=== PATIENT | female | born 2000 | race Caucasian/White ===

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

== ENCOUNTER 2020-07-22 19:44 | Emergency (ER) | payer OTHER, SELFPAY ==
[2020-07-22 20:05] VITALS: BP 130/73; PULSE 76; RESP 18; TEMP 36.6; O2SAT 99; BMI 41.3
--- NOTE | 2020-07-22 20:21 | HMH.EDUTC ---
[facility] [place] Clinical Impression: Exposure to COVID-19 virus Disposition: Home, Self-Care Condition on Discharge: Good Instructions: DI for COVID-19 (Suspected or Confirmed ), COVID-19 Viral Test, COVID-19: Testing and Tracing, Preventing the Spread of Coronavirus Discharge Instructions Additional Instructions: *Monitor Temp, Over the counter Motrin or Tylenol as directed/as needed Tylenol every 4 hours and Motrin every 6 hours (as long as your family doctor has told you that you can take it) for fever or pain. and straight to ER if unable to lower temp less than 101.0 after medication given *Warm salt water gargles may help to soothe the throat *Throat Lozenges *Warm fluids like tea with honey may help to soothe the throat *Sleep elevated *Humidifier/Vaporizer Follow up IMMEDIATELY for new or worsening symptoms or no Noticeable improvement over the next 48-72 hours. 911 for difficulty breathing or swallowing You were tested for today for COVID19 your test result should be back in the next 24-48 hours, you may call to the [facility] to see if your test results are back in the next 48 hours [phone] [facility] hours are 9am-9pm You was given a handout with instructions for Self Quarantine and Self isolation for while you wait on test results and what to do if they are positive If you are positive the Health Dept will be contacting you also Referrals: Lamar Saldaña APRN [Primary Care Provider] - As needed Forms: Work/School Release Time of Disposition: 20:23 Medical Decision Making - Tian Inquiry Pt receiving controlled substance: No Tian was queried for this patient: No Vital Signs: 07/22/20 20:05 Temperature 97.8 F Temperature Source Oral Pulse Rate [Right Brachial] 76 Respiratory Rate 18 Blood Pressure [Right Arm] 130/73 Blood Pressure Mean [Right Arm] 92 Blood Pressure Source [Right Arm] Automatic Cuff Blood Pressure Position [Right Arm] Sitting 02 Sat by Pulse Oximetry 99 Oxygen Delivery Method Room Air Orders (Tests/Meds): ORDERS Category Date Time Status Covid-19 Nasal PCR ([facility]) Routine Lab 07/22/20 20:00 Received [facility] [place] HPI - General Stated complaint: covid exposures Time Seen by Provider: 07/22/20 20:21 Mode of Arrival: Ambulatory Source of Information: Patient Limitations: No Limitations Description of Symptoms (Recalled from Triage Doc. 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 - Related Data Previous Rx's Medication Instructions Recorded metronidazole 500 mg tablet 500 mg PO TID 7 Days #21 tab 05/25/20 Allergies Allergy/AdvReac Type Severity Reaction Status Date / Time human papillomavirus Allergy Mild Verified 05/25/20 14:34 vaccine, quadr [From Gardasil (PF)] Penicillins [PENICILLINS] Allergy Unknown I-HIVES Verified 05/25/20 14:34 - Worker's Comp Is this a Worker's Comp case?: No [facility] History - Hepatitis A Screen Drug use history?: No High risk sexual behaviors?: No History of sexually transmitted infection?: No Currently employed?: No Childcare worker?: No Do you have indoor plumbing?: Yes Do you have electricity?: Yes Attestation statement:: This patient has been screened for Hepatitis A risk factors. I have reviewed the patient's past medical history: Yes 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: Denies:: Cancer, Diabetes Mellitus Type 1, Diabetes Mellitus Type 2, MRSA Other 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: Reports: Hypothyroidism, Thyroid Disease Other Surgeries: Yes: No Previous Surgery, Othe
[2020-07-22 20:29] VITALS: BP 130/73; PULSE 76; RESP 18; TEMP 36.6; O2SAT 99
== END 2020-07-22 20:30 | disposition home or self-care (01) ==
PROVIDERS: Emergency Provider Nurse Practitioner; PCP Nurse Practitioner Family
DX: Z20.828 Contact with and (suspected) exposure to other viral communicable diseases (principal); Z88.0 Allergy status to penicillin
CPT/HCPCS: 99201; U0003

== ENCOUNTER → 2020-09-07 14:27 | Outpatient (CLI) | payer OTHER, SELFPAY ==
--- NOTE | 2020-09-07 14:30 | XR_ITS ---
PROCEDURE: XR FOOT WT BEARING RT 3V CLINICAL INDICATION: R Foot pain COMPARISON: No exams were available for comparison FINDINGS: No fracture or dislocation. No lytic or blastic change. There is normal mineralization. The joint spaces are well-preserved. No significant degenerative/arthritic changes. No erosive changes evident. Other findings:None. IMPRESSION: No acute findings. Dictated by: Omer Velez MD 09/07/2020 14:39 Omer Velez MD in [place] 09/07/2020 14:39
== END ==
PROVIDERS: PCP Nurse Practitioner Family; Visit Provider Nurse Practitioner Family
DX: M79.671 Pain in right foot (principal)
CPT/HCPCS: 73630

== ENCOUNTER 2020-12-05 15:03 | Emergency (ER) | payer SELFPAY ==
[2020-12-05 15:35] VITALS: BP 154/83; PULSE 98; RESP 20; TEMP 37.1; O2SAT 99; BMI 41.2
--- NOTE | 2020-12-05 15:37 | XR_ITS ---
PROCEDURE INFORMATION: Exam: XR Abdomen Exam date and time: 12/05/2020 3:37 PM Age: 19 years old Clinical indication: Patient HX: Constipation since Monday TECHNIQUE: Imaging protocol: XR of the abdomen. Views: Frontal supine view of the abdomen. 1 View. COMPARISON: No relevant prior studies available. FINDINGS: Gastrointestinal tract: The bowel gas pattern is nonobstructive and nonspecific. A large amount of stool is noted throughout the colon. Bones/joints: Unremarkable. IMPRESSION: 1. The bowel gas pattern is nonobstructive and nonspecific. 2. A large amount of stool is noted throughout the colon.
--- NOTE | 2020-12-05 15:56 | HMH.EDUTC ---
[facility] [place] Clinical Impression: Constipation Qualifiers: Constipation type: unspecified constipation type Qualified Code(s): K59.00 - Constipation, unspecified Disposition: Home, Self-Care Condition on Discharge: Good Instructions: Constipation, DI for Constipation, Polyethylene Glycol 3350 Additional Instructions: Over the counter Magnesium Citrate may help to erradicate remaining stool Take mirlax daily as needed for constipation Make sure to be drinking plenty of water Make sure that you are getting enough fiber in your diet Return if needed Straight to ER if any life threatening symptoms Follow up with Family Doctor if symptoms return or no improvement Prescriptions: polyethylene glycoL 3350 [Miralax 17gm Packet] 17 gm PO DAILY #30 packet Transmission Status: Received by [facility] Referrals: Nikolas Nguyễn MD [Primary Care Provider] - As needed Time of Disposition: 17:00 Medical Decision Making - Tian Inquiry Pt receiving controlled substance: No Tian was queried for this patient: No Vital Signs: 12/05/20 15:35 Temperature 98.8 F Temperature Source Oral Pulse Rate [Right Brachial] 98 H Respiratory Rate 20 Blood Pressure [Right Arm] 154/83 H Blood Pressure Mean [Right Arm] 106 Blood Pressure Source [Right Arm] Automatic Cuff Blood Pressure Position [Right Arm] Sitting 02 Sat by Pulse Oximetry 99 Oxygen Delivery Method Room Air - Radiology Data #1 Image(s): KUB Image Reviewed: Yes I have reviewed radiologist's interpretation IMPRESSION: 1. The bowel gas pattern is nonobstructive and nonspecific. 2. A large amount of stool is noted throughout the colon. Medical Decision Narrative: Checked rectal area and large amount of hard stool palpated Stool removed with manual disimpaction and patient immediately states that she felt like she had to go to the bathroom Patient to the bathroom and had large bowel movement Patient states that she feels much better and no longer having pain or pressure like feeling in her rectal area After large BM patient states that she feels much better patient prescribed Mirlax and discussed Mag Citrate mother states that she would purchase over the counter [facility] [place] HPI - General Stated complaint: constipation Time Seen by Provider: 12/05/20 15:56 Mode of Arrival: Ambulatory Source of Information: Patient Limitations: No Limitations Description of Symptoms (Recalled from Triage Doc. by RN): PATIENT C/O SEVERE CONSTIPATION. SHE STATES HER LAST BOWEL MOVEMENT WAS ON MONDAY. SHE HAS USED LAXATIVES, STOOL SOFTENERS AND ENEMAS WITH NO RESULTS. PATIENT IS TEARFUL AT THIS TIME D/T ABDOMINAL DISCOMFORT HEENT Symptoms (Recalled from RN notes): No Resp Symptoms (Recalled from RN notes): No Skin Symptoms (Recalled from RN notes): No MS Symptoms (Recalled from RN notes): No Functional Status (Recalled from RN notes): WNL - History of Present Illness Provider Complaint: Patient states that she hasnt had a bowel movement since Monday and feels like she is constipated States that she has taken oral laxatives and stool softners and feels like it is at her anus ready to come out but she stuck her fingers up there and feels like it is sideways and she made her butt bleed States that she has a pressure like feeling like it is right there and she needs to go States that she has been passing gas just pressure in her rectal area like she has stool that is stuck there - Related Data Previous Rx's Medication Instructions Recorded meloxicam 7.5 mg tablet 7.5 mg PO DAILY 30 Days #30 tab 09/28/20 polyethylene glycoL 3350 [Miralax 17 gm PO DAILY #30 packet 12/05/20 17gm Packet] Allergies Allergy/AdvReac Type Severity Reaction Status Date / Time human papillomavirus Allergy Mild Verified 09/28/20 09:16 vaccine, quadr [From Gardasil (PF)] Penicillins [PENICILLINS] Allergy Unknown I-HIVES Verified 09/28/20 09:16 - Worker's Comp Is t
[2020-12-05 16:55] VITALS: BP 154/83; PULSE 98; RESP 20; TEMP 37.1; O2SAT 99
--- NOTE | 2020-12-05 17:30 | PC.NURSE ---
PATIENT REPORTED XL BOWEL MOVEMENT PRIOR TO DISCHARGE
== END 2020-12-05 17:00 | disposition home or self-care (01) ==
PROVIDERS: Emergency Provider Nurse Practitioner; PCP Emergency Medicine
DX: K59.00 Constipation, unspecified (principal); E03.9 Hypothyroidism, unspecified
CPT/HCPCS: 74018; 99202; G0463

== ENCOUNTER 2021-04-22 14:52 | Emergency (ER) | payer OTHER, SELFPAY ==
[2021-04-22 14:53] VITALS: BP 121/70; PULSE 98; RESP 18; TEMP 36.7; O2SAT 98; BMI 35.4
[2021-04-22 15:00] VITALS: BP 134/73; PULSE 77; O2SAT 98
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
--- NOTE | 2021-04-22 15:19 | PC.NURSE ---
pt to CT
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
[2021-04-22 17:23] VITALS: BP 123/68; PULSE 78; RESP 18; TEMP 36.6; O2SAT 96
== END 2021-04-22 17:25 | disposition home or self-care (01) ==
PROVIDERS: Emergency Provider Emergency Medicine; PCP Emergency Medicine
DX: M54.2 Cervicalgia (principal); M62.838 Other muscle spasm; V49.9XXA Car occupant (driver) (passenger) injured in unspecified traffic accident, initial encounter; Y92.488 Other paved roadways as the place of occurrence of the external cause
CPT/HCPCS: 72125; 99282

== ENCOUNTER 2021-05-08 07:45 | Emergency (ER) | payer SELFPAY ==
[2021-05-08 07:46] VITALS: BP 150/79; PULSE 100; RESP 18; TEMP 36.7; O2SAT 96; BMI 35.9
--- NOTE | 2021-05-08 08:06 | HMH.EDGENADL ---
ED Disposition Clinical Impression: Fecal impaction Disposition: Home, Self-Care Condition on Discharge: Good Instructions: DI for Fecal Impaction Additional Instructions: Continue stool softeners and high-fiber diet. Drink plenty of fluids. MiraLAX as prescribed. Prescriptions: polyethylene glycoL 3350 [Miralax 17gm Packet] 17 gm PO DAILY #5 packet Transmission Status: Pending to [facility] Referrals: Lamar Saldaña APRN [Primary Care Provider] - 3 days Forms: Work/School Release - Critical Care Critical Care Time: No Attestation: On 05/08/21, the high probability of a clinically significant, sudden or life threatening deterioration of the following system(s) required my full and direct attention, intervention and personal management. The time I documented below is in addition to time spent performing reported procedures but includes the following listed in this critical care notation. Medical Decision Making - Medical Records Medical records reviewed: Yes: I reviewed the patient's medical records. MR Comment: Has a listed history of hypothyroidism, currently not on thyroid replacement. I discussed this with the patient. She says that she was taken off of thyroid replacement years ago, told that she did not need it. Has not had her thyroid function checked since then. I advised her that hypothyroidism is a potential cause of constipation and recommended checking a thyroid profile. She is agreeable. - Tian Inquiry Pt receiving controlled substance: No Vital Signs: 05/08/21 07:46 Temperature 98.0 F Temperature Source Oral Pulse Rate [Left Radial] 100 H Respiratory Rate 18 Blood Pressure [Right Arm] 150/79 H Blood Pressure Mean [Right Arm] 102 Blood Pressure Source [Right Arm] Automatic Cuff Blood Pressure Position [Right Arm] Sitting 02 Sat by Pulse Oximetry 96 Oxygen Delivery Method Room Air - Lab Data Lab Results 05/08/21 08:36: WBC 5.3, RBC 4.26, Hgb 14.0, Hct 43.2, MCV 101.5 H, MCH 32.8 H, MCHC 32.3, RDW 14.2, Plt Count 262, MPV 7.8, Neut % (Auto) 63.8, Lymph % (Auto) 27.8, [place] % (Auto) 5.4, Eos % (Auto) 2.2, Baso % (Auto) 0.8, Neut # (Auto) 3.4, Lymph # (Auto) 1.5, [place] # (Auto) 0.3, Eos # (Auto) 0.1, Baso # (Auto) 0.0 05/08/21 08:36: Sodium 142, Potassium 4.4, Chloride 107, Carbon Dioxide 26, Anion Gap 13.4, BUN 8, Creatinine 0.50 L, Estimated Creat Clear 312 H, Estimated GFR 157, Est GFR ( Amer) 190, Glucose 85, Calcium 9.4, Total Bilirubin 0.5, AST 23, ALT 15, Alkaline Phosphatase 58, Total Protein 8.0, Albumin 4.7, Globulin 3.3 H, Albumin/Globulin Ratio 1.4 05/08/21 08:36: TSH 3.93, Free T4 Index 2.5 L, Thyroxine (T4) 9.5, T3 Uptake 26 Result diagrams: 05/08/21 08:36 05/08/21 08:36 Orders (Tests/Meds): ED MEDICATIONS Discontinued Medications Generic Name Dose Route Start Last Admin Trade Name Freq PRN Reason Stop Dose Admin Magnesium Citrate 1 bot 05/08/21 08:20 05/08/21 08:43 Magnesium Citrate 10oz Bottle PO 05/08/21 08:21 1 bot ONCE ONE Administration - Reevaluation(s) Time: 09:42 Reevaluation #1: Feels much better, good BM results from enema General Adult HPI - General Stated complaint: Abd pain no BM for 2 days Time Seen by Provider: 05/08/21 08:06 - History of Present Illness HPI narrative: Complains of a fecal impaction. Complains of pressure in her rectum. Denies abdominal pain. States that she has lots of problems with her bowels with constipation chronically. For the past few weeks she has been having some increased difficulty. No bowel movement now for 2 days, feels like she has an impaction. She has tried glycerin liquid and she tried to do get out . She takes stool softeners at home as well. She has never seen a environmental aid about constipation. States she does not currently have health insurance and is unable to do so. Denies vomiting or fever. She was seen in the urgent treatment center here in
--- NOTE | 2021-05-08 08:43 | PC.NURSE ---
enema complete, pt tolerated well.
[2021-05-08 08:47] LABS: Basophils % 0.8 % (0.1-2.0); Eosinophils # 0.1 K/mm3 (0.0-0.4); Eosinophils % 2.2 % (0.1-12.0); Hematocrit 43.2 % (37.0-47.0); Lymphocytes # 1.5 K/mm3 (0.7-4.5); Lymphocytes % 27.8 % (10-50); Mean Corpuscular HGB Conc 32.3 g/dL (31.8-35.4); Mean Corpuscular Hemoglobin 32.8 pg (27.0-31.2); Mean Corpuscular Volume 101.5 fl (81-99); Mean Platelet Volume 7.8 fl (7.4-10.4); Monocytes # 0.3 K/mm3 (0.1-1.0); Monocytes % 5.4 % (1.7-9.3); Neutrophils # 3.4 K/mm3 (1.8-7.8); Neutrophils % 63.8 % (37.0-80.0); Platelet Count 262 K/mm3 (142-424); Red Blood Count 4.26 M/mm3 (4.20-5.40); Red Cell Distribution Width 14.2 % (11.5-17.5); White Blood Count 5.3 K/mm3 (4.5-13.0)
[2021-05-08 09:00] LABS: Chloride 107 mmol/L (98-107); Potassium 4.4 mmoL/L (3.5-5.1); Sodium 142 mmol/L (136-145)
--- NOTE | 2021-05-08 09:00 | PC.NURSE ---
pt in bathroom at this time
[2021-05-08 09:03] LABS: Alanine Aminotransferase 15 U/L (12-78); Albumin Level 4.7 g/dl (3.5-5.0); Albumin/Globulin Ratio 1.4 (1.1-1.8); Alkaline Phosphatase 58 U/L (38-126); Anion Gap 13.4 mEq/L (5-15); Aspartate Amino Transferase 23 U/L (14-36); Bilirubin,Total 0.5 mg/dl (0.2-1.3); Blood Urea Nitrogen 8 mg/dl (7-17); Carbon Dioxide 26 mmol/L (22.0-30.0); Creatinine Clearance Estimated 312 mL/min (50-200); Estimated Glomerular Filt Rate 157 ml/min (>60); GFR (African American) 190 ML/MIN (>60); Globulin 3.3 g/dL (1.3-3.2)
[2021-05-08 09:04] LABS: Calcium 9.4 mg/dl (8.4-10.2); Glucose 85 mg/dl (74-100)
--- NOTE | 2021-05-08 09:10 | PC.NURSE ---
Pt states she feels better, no more pressure in rectal area, she was successful with multi stool bad with defecation.
[2021-05-08 09:20] LABS: Triiodothryronine (T3) Uptake 26 % (23.5-40.5)
[2021-05-08 09:21] LABS: Free Thyroxine Index 2.5 ug/dL (5.93-13.13); T4 (Thyroxine) 9.5 ug/dl (5.53-11.0)
[2021-05-08 09:35] LABS: Thyroid Stimulating Hormone 3.93 uIU/mL (0.465-4.68)
[2021-05-08 09:51] VITALS: BP 132/86; PULSE 64; RESP 19; O2SAT 100
[2021-05-08 09:52] VITALS: BP 132/86; PULSE 65; RESP 18; TEMP 36.7; O2SAT 100
== END 2021-05-08 09:53 | disposition home or self-care (01) ==
PROVIDERS: Emergency Provider Emergency Medicine; PCP Nurse Practitioner Family
DX: K56.41 Fecal impaction (principal)
CPT/HCPCS: 80053; 84436; 84443; 84479; 85025; 99282

== ENCOUNTER → 2021-08-25 11:44 | Outpatient (CLI) | payer OTHER, SELFPAY | PROVIDERS: Visit Provider Nurse Practitioner | DX: U07.1 COVID-19 (principal) | CPT/HCPCS: C9803; U0003; U0005 ==

== ENCOUNTER 2022-03-05 14:23 | Emergency (ER) | payer SELFPAY ==
[2022-03-05 14:45] VITALS: BP 126/70; PULSE 86; RESP 18; TEMP 36.7; O2SAT 97; BMI 30.2
--- NOTE | 2022-03-05 14:48 | HMH.EDUTC ---
[facility] [place] Clinical Impression: Viral syndrome Disposition: Home, Self-Care Condition on Discharge: Good Instructions: DI for COVID-19 (Suspected or Confirmed ), Preventing the Spread of Coronavirus Discharge Instructions Additional Instructions: Drink plenty of fluids. Take tylenol or ibuprofen for pain or fever. Take the medications as directed. Follow up with your regular doctor. GO TO THE ER FOR ANY WORSENING SYMPTOMS Quarantine until you know the results of your covid-19 test. Notify your school or workplace of your results and follow their instructions regarding return to work/school. Prescriptions: Brompheniramine/Pseudoephed/Dm [Bromfed Dm Cough Syrup] 5 ml PO Q6HP PRN #240 ml PRN Reason: Cough Transmission Status: Received by [facility] Ondansetron [Zofran 4mg ODT] 4 mg PO Q8HP PRN #12 tab PRN Reason: Nausea Transmission Status: Received by [facility] Referrals: Nikolas Nguyễn MD [Primary Care Provider] - Forms: Work/School Release Time of Disposition: 15:04 Medical Decision Making - Medical Records Medical records reviewed: No: I reviewed the patient's medical records. - Tian Inquiry Pt receiving controlled substance: No Vital Signs: 03/05/22 14:45 03/05/22 15:07 Temperature 98.1 F 98.1 F Temperature Source Oral Pulse Rate 86 Pulse Rate [Left] 86 Respiratory Rate 18 18 Blood Pressure 126/70 Blood Pressure [Right Arm] 126/70 Blood Pressure Mean [Right Arm] 88 02 Sat by Pulse Oximetry 97 [facility] [place] - General Stated complaint: covid exposure, body aches, chills Time Seen by Provider: 03/05/22 14:48 Mode of Arrival: Ambulatory Source of Information: Patient Limitations: No Limitations Description of Symptoms (Recalled from Triage Doc. by RN): patient comes in for covid test. patient was exposed by a room mate. at home test was negative. symptoms include body aches, headaches, runny nose. HEENT Symptoms (Recalled from RN notes): Yes Resp Symptoms (Recalled from RN notes): No Skin Symptoms (Recalled from RN notes): No MS Symptoms (Recalled from RN notes): No Functional Status (Recalled from RN notes): n/a - History of Present Illness Provider Complaint: She was exposed to covid-19 3 days ago. she started to feel bad last night. she has a scratchy throat and body aches. - Related Data Previous Rx's Medication Instructions Recorded meloxicam 7.5 mg tablet 7.5 mg PO DAILY 30 Days #30 tab 09/28/20 polyethylene glycoL 3350 [Miralax 17 gm PO DAILY #30 packet 12/05/20 17gm Packet] Ibuprofen [Ibuprofen 800mg 800 mg PO TIDP PRN #20 tab 04/22/21 Tablet] methocarbamoL [Methocarbamol] 750 mg PO QID 7 Days #28 tab 04/22/21 polyethylene glycoL 3350 [Miralax 17 gm PO DAILY #5 packet 05/08/21 17gm Packet] Brompheniramine/Pseudoephed/Dm 5 ml PO Q6HP PRN #240 ml 03/05/22 [Bromfed Dm Cough Syrup] Ondansetron [Zofran 4mg ODT] 4 mg PO Q8HP PRN #12 tab 03/05/22 Allergies Allergy/AdvReac Type Severity Reaction Status Date / Time human papillomavirus Allergy Mild Verified 03/05/22 14:48 vaccine, quadr [From Gardasil (PF)] Penicillins [PENICILLINS] Allergy Unknown I-HIVES Verified 03/05/22 14:48 - Worker's Comp Is this a Worker's Comp case?: No [facility] History - Hepatitis A Screen Attestation statement:: This patient has been screened for Hepatitis A risk factors. I have reviewed the patient's past medical history: Yes 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: Denies:: Cancer, Diabetes Mellitus Type 1, Diabetes Mellitus Type 2, MRSA Other 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: Reports: Hypothyroidism, Thyroid Disease Other Surgeries: Yes: No Previous Surgery, Other Amputation: No Fractures: No Comment: WISDOM TEETH REMOVED - Social History Smoking Status: Never smoker Tobacco Type: smokeless tobacco # Packs/Day (cigarettes): 0 #Yrs smoked (if former smoker): 0 Alcohol Intake: never Substance Use Type: denies use Occupational Status: ot
[2022-03-05 15:07] VITALS: BP 126/70; PULSE 86; RESP 18; TEMP 36.7
== END 2022-03-05 15:09 | disposition home or self-care (01) ==
PROVIDERS: Emergency Provider Nurse Practitioner Family; PCP Emergency Medicine
DX: B34.9 Viral infection, unspecified (principal)
CPT/HCPCS: 99212; C9803; G0463; U0003; U0005

== ENCOUNTER → 2022-06-17 11:37 | Outpatient (CLI) | payer OTHER, SELFPAY | PROVIDERS: PCP Student in an Organized Health Care Education/Training Program; Visit Provider Student in an Organized Health Care Education/Training Program | DX: N39.0 Urinary tract infection, site not specified (principal) | CPT/HCPCS: 87086 ==

== ENCOUNTER → 2022-07-26 14:21 | Outpatient (CLI) | payer OTHER, SELFPAY ==
[2022-07-26 16:28] LABS: HCG,Quantitative 376 mIU/ml (0-5.42)
== END ==
PROVIDERS: PCP Emergency Medicine; Visit Provider Obstetrics & Gynecology
DX: N92.6 Irregular menstruation, unspecified (principal); Z32.00 Encounter for pregnancy test, result unknown
CPT/HCPCS: 36415; 84702

== ENCOUNTER 2022-11-03 17:44 | Emergency (ER) | payer MEDICAID, SELFPAY ==
[2022-11-03 17:47] VITALS: BP 114/73; PULSE 90; RESP 17; TEMP 36.7; O2SAT 100; BMI 31.8
--- NOTE | 2022-11-03 17:55 | HMH.EDGENADL ---
Discharge Plan Disposition Patient Disposition: Home, Self-Care Prescriptions Prescriptions: No Action nitrofurantoin macrocrystal 100 mg capsule 100 mg PO BID 7 Days Qty: 14 0RF Rx Instructions: must administer with a meal/food Referrals Follow up/Referrals: Nikolas Nguyễn MD [Primary Care Provider] - See instructions Activity Restrictions/Add. Instructions Additional Instructions/Restrictions: Please follow-up with your [employer] doctors if you have any worsening abdominal pain loss of fluid vaginal bleeding or contractions. You may take Tylenol with or without Benadryl as discussed for as needed for discomfort. Clinical Impressions Clinical Impression: Second trimester , Sciatica Discharge ED Provider: David Dickerson General Adult HPI General Stated complaint: 19 WK PREG, Back and Abd pain. Time Seen by Provider: 11/03/22 17:56 History of Present Illness HPI narrative: Patient is a G1, P0 female who is here with primarily back pain. She states she has a history of sciatica and her symptoms have been worsening recently pain rating down the left lateral aspect of her leg with occasional numbness in her foot. This is not associate with any weakness and is intermittent at best. Every once in a while she has bilateral adnexal pain that is sharp in nature that radiates up but she is currently not having any abdominal pain. There is been no decrease in movements she says not yet felt the baby move, no loss of fluid no bleeding no contractions. She had some Tylenol at home with some mild improvement. Of note her sister recently had strep throat they are concerned about that because she felt systemic malaise however she does not have any throat pain and no fever. No urinary symptoms including burning frequency urgency. No vaginal bleeding or vaginal discharge. No changes in bowel movements. Related Data Previous Rx's Medication Instructions Recorded nitrofurantoin macrocrystal 100 mg 100 mg PO BID 7 days #14 caps 06/17/22 capsule Allergies Allergy/AdvReac Type Severity Reaction Status Date / Time human papillomavirus Allergy Mild Verified 06/17/22 11:36 vaccine, quadr [From Gardasil (PF)] Penicillins [PENICILLINS] Allergy Unknown I-HIVES Verified 06/17/22 11:36 [facility] Disclaimer: The information contained in this section may have been updated after the patient was seen, as this information can be updated by other users. 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 Bilateral otitis media Hypothyroidism (~04/16/18) Mononucleosis (~04/16/18) Vitamin D deficiency (~04/16/18) Social History Smoking Status: Never smoker alcohol intake: never substance use type: denies use current occupational status: other Travel in the last 8 weeks: None household members: family housing: house ROS Obtained: Yes All systems reviewed & no additional complaints except as documented Physical Exam General General appearance: alert and in no apparent distress Respiratory Respiratory exam: Absent respiratory distress Cardiovascular Cardiovascular exam: Present regular rate and normal rhythm; Absent tachycardia Abdominal Exam Abdominal exam: Present soft; Absent distention, tenderness, guarding, rebound, rigidity or normal bowel sounds Neurological Exam Neurological exam: Present alert and oriented X3 Medical Decision Making Tian Inquiry Pt receiving controlled substance: No Medical Decision Narrative: Patient very well-appearing 21-year-old female with multiple complaints associate with second trimester . She states that she has had intermittent abdominal pain but her abdominal exam is completely benign right now and she has no abdominal pain. This is not consistent with a surgical emergency. She also is having lower back pain that is consistent with sciatica without any symptoms c
[2022-11-03 18:29] VITALS: BP 114/73; PULSE 90; RESP 17; TEMP 36.7; O2SAT 100
== END 2022-11-03 18:29 | disposition home or self-care (01) ==
PROVIDERS: Emergency Provider Student in an Organized Health Care Education/Training Program; PCP Emergency Medicine
DX: O99.352 Diseases of the nervous system complicating pregnancy, second trimester (principal); M54.42 Lumbago with sciatica, left side; Z3A.19 19 weeks gestation of pregnancy
CPT/HCPCS: 99283; 99284

== ENCOUNTER 2023-01-20 14:58 | Outpatient (CLI) | payer MEDICAID, SELFPAY ==
[2023-01-20 15:43] VITALS: BMI 38.9
[2023-01-20 15:44] VITALS: BMI 38.9
[2023-01-20 15:59] LABS: Microscopic, Urine URINE MICROSCOPIC (MICROSCOPIC)
[2023-01-20 16:02] LABS: Appearance,Urine CLEAR (Clear); Bilirubin,Urine Negative (Negative); Blood, Urine Negative (Negative); Color,Urine YELLOW (Yellow); Glucose,Urine (UA) Negative (Negative); Ketones,Urine 1+ (Negative); Leukocyte Esterase,Urine TRACE (Negative); Nitrate,Urine Negative (Negative); PH,Urine 6.5 (5.0-8.5); Protein,Urine Negative (Negative); Urobilinogen,Urine 0.2 EU/dl (0.2)
[2023-01-20 16:13] LABS: Amphetamine/Metha Screen,Urine Negative ng/ml (<1000)
[2023-01-20 16:14] LABS: Barbiturates Screen,Urine Negative ng/ml (<200); Benzodiazepines Screen,Urine Negative ng/ml (<200)
[2023-01-20 16:15] LABS: Cannabinoid Screen,Urine Negative ng/ml (<50)
[2023-01-20 16:16] LABS: Cocaine Screen,Urine Negative ng/ml (<300); Methadone Screen,Urine Negative ng/ml (<300)
[2023-01-20 16:17] LABS: Opiate Screen,Urine Negative ng/ml (<300)
[2023-01-20 16:18] LABS: Phencyclidine Screen,Urine Negative ng/ml (<25)
[2023-01-20 16:22] LABS: WBC,Urine Occasional #/hpf (0-3)
[2023-01-20 16:23] LABS: Bacteria,Urine Trace /lpf
== END 2023-01-20 16:33 | disposition home or self-care (01) ==
LOC: OBOUT 14:59 → OB 15:01
PROVIDERS: PCP Emergency Medicine; Visit Provider Obstetrics & Gynecology
DX: O26.893 Other specified pregnancy related conditions, third trimester (principal); Z3A.30 30 weeks gestation of pregnancy; R60.0 Localized edema; R20.2 Paresthesia of skin; R20.0 Anesthesia of skin
CPT/HCPCS: 59025; 80305; 81001; G0463

== ENCOUNTER → 2023-07-27 09:00 | Outpatient (CLI) | payer MEDICAID, SELFPAY ==
[2023-07-27 18:10] LABS: Basophils % 0.4 % (0.1-2.0); Eosinophils # 0.1 K/mm3 (0.0-0.4); Eosinophils % 1.6 % (0.1-12.0); Hematocrit 40.6 % (37.0-47.0); Hemoglobin 13.3 g/dL (12.2-16.2); Lymphocytes # 1.7 K/mm3 (0.7-4.5); Lymphocytes % 29.4 % (10-50); Mean Corpuscular HGB Conc 32.8 g/dL (31.8-35.4); Mean Corpuscular Hemoglobin 29.5 pg (27.0-31.2); Mean Corpuscular Volume 89.9 fl (81-99); Mean Platelet Volume 8.8 fl (7.4-10.4); Monocytes # 0.3 K/mm3 (0.1-1.0); Monocytes % 5.8 % (1.7-9.3); Neutrophils # 3.6 K/mm3 (1.8-7.8); Neutrophils % 62.7 % (37.0-80.0); Platelet Count 248 K/mm3 (142-424); Red Blood Count 4.51 M/mm3 (4.20-5.40); Red Cell Distribution Width 14.8 % (11.5-17.5); White Blood Count 5.7 K/mm3 (4.8-10.8)
[2023-07-27 19:43] LABS: Hemoglobin A1C 5.2 % (4.0-6.0)
[2023-07-27 20:15] LABS: Alanine Aminotransferase 19 U/L (12-78); Albumin Level 4.7 g/dl (3.5-5.0); Albumin/Globulin Ratio 1.5 (1.1-1.8); Alkaline Phosphatase 86 U/L (38-126); Anion Gap 11.8 mEq/L (5-15); Aspartate Amino Transferase 27 U/L (14-36); Bilirubin,Total 0.5 mg/dl (0.2-1.3); Blood Urea Nitrogen 10 mg/dl (7-17); Calcium 8.9 mg/dl (8.4-10.2); Carbon Dioxide 25 mmol/L (22.0-30.0); Chloride 105 mmol/L (98-107); Estimated Glomerular Filt Rate 154 ml/min (>60); GFR (African American) 187 ML/MIN (>60); Globulin 3.2 g/dL (1.3-3.2); Glucose 87 mg/dl (74-100); Potassium 4.8 mmoL/L (3.5-5.1); Sodium 137 mmol/L (136-145); Total Protein,Serum 7.9 g/dl (6.3-8.2)
[2023-07-27 20:42] LABS: 25-OH Vitamin D, Total < 12.8 ng/mL (30-100)
[2023-07-27 21:03] LABS: Vitamin B12 337 pg/mL (239-931)
== END ==
LOC: LAB.DROPOF 07-28 09:01
PROVIDERS: PCP Family Medicine; Visit Provider Family Medicine
DX: E66.01 Morbid (severe) obesity due to excess calories (principal); R53.83 Other fatigue; E03.9 Hypothyroidism, unspecified; E55.9 Vitamin D deficiency, unspecified; Z68.42 Body mass index [BMI] 45.0-49.9, adult
CPT/HCPCS: 80053; 82306; 82607; 83036; 84443; 85025

== ENCOUNTER 2023-08-23 00:50 | Emergency (ER) | payer MEDICAID, SELFPAY ==
[2023-08-23 00:51] VITALS: BP 131/67; PULSE 85; RESP 18; TEMP 36.7; O2SAT 100; BMI 46.5
--- NOTE | 2023-08-23 01:01 | HMH.EDGENADL ---
Discharge Plan Disposition Patient Disposition: Home, Self-Care Prescriptions Prescriptions: New methocarbamol 500 mg tablet 750 mg PO Q6H PRN (Reason: pain) Qty: 30 0RF lidocaine 5 % adhesive patch,medicated 1 patch topical DAILY PRN (Reason: pain) Qty: 30 0RF Rx Instructions: leave on most painful area for up to 12 hrs No Action levothyroxine 50 mcg tablet 50 mcg PO DAILY Qty: 30 2RF cholecalciferol (vitamin D3) 1,250 mcg (50,000 unit) capsule 1,250 mcg PO WEEKLY 42 Days Qty: 6 0RF Referrals Follow up/Referrals: Provider,Referral, [Primary Care Provider] - See instructions Activity Restrictions/Add. Instructions Additional Instructions/Restrictions: Please take Tylenol and ibuprofen in combination with the Robaxin as needed for pain. Please use lidocaine patches as needed. Please follow-up with your primary care provider. Please return to the emergency department if you develop any new or worsening symptoms or become concerned for your health. Clinical Impressions Clinical Impression: Sciatica of left side Discharge ED Provider: Cornelio Paz General Adult HPI General Chief complaint: Extremity Injury, Lower Stated complaint: lower back pain, leg pain Time Seen by Provider: 08/23/23 00:55 History of Present Illness HPI narrative: 22-year-old female presents with worsening sciatica. She reports that she has had sciatica in the past, but it typically does not last very long. She reports for the last few days she has had worsening pain in the left low back/buttock, radiating down the posterior leg. She reports that her legs sometimes gives out when she bends over or stands up straight. She reports no recent trauma. Denies any fevers, history of malignancy, history of IV drug use. She reports no specific weakness, just that it gives out sometimes . She reports intermittent numbness when the pain shoots down. No current numbness. She has a follow-up appointment scheduled with her PCP tomorrow, but due to the pain he presents tonight. She denies any bowel or bladder incontinence, denies any urinary retention. Denies any perineal anesthesia. Related Data Previous Rx's Medication Instructions Recorded cholecalciferol (vitamin D3) 1,250 1,250 mcg PO WEEKLY vitamin d def. 07/28/23 mcg (50,000 unit) capsule 6 weeks #6 caps levothyroxine 50 mcg tablet 50 mcg PO DAILY hypothyroid #30 07/28/23 tabs lidocaine 5 % topical patch 1 patch topical DAILY PRN pain #30 08/23/23 ea methocarbamol 500 mg tablet 750 mg PO Q6H PRN pain #30 tabs 08/23/23 Allergies Allergy/AdvReac Type Severity Reaction Status Date / Time human papillomavirus Allergy Mild Verified 07/27/23 10:58 vaccine, quadr [From Gardasil (PF)] Penicillins [PENICILLINS] Allergy Unknown I-HIVES Verified 07/27/23 10:58 PFSH PFSH Disclaimer: The information contained in this section may have been updated after the patient was seen, as this information can be updated by other users. 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 (Updated 08/23/23 @ 01:34 by Cornelio Paz MD) Ankle sprain Bilateral otitis media Callus of foot Cervical paraspinal muscle spasm Constipation Degenerative disc disease, lumbar Exposure to COVID-19 virus Fall Fecal impaction Foot pain Hypothyroidism (~04/16/18) Local reaction to immunization Low back pain Low back strain Lumbar radiculopathy Mononucleosis (~04/16/18) Otitis media Plantar fasciitis, right Right hand pain Right wrist sprain Sciatica Sciatica Second trimester Sinusitis Strep throat URI (upper respiratory infection) Viral syndrome Vitamin D deficiency (~04/16/18) Weakness Social History Smoking Status: Current every day smoker tobacco type: smokeless tobacco alcohol intake: never substance use type: denies use current occupational status: employed Travel in the last 8 weeks: None household members: family housing: house ROS Obtained: Yes All systems reviewed & no additional complaints except as documented Physical Exam General General appearance: alert and anxious Head Head exam: atraumatic and normocephalic Eye Eye exam: Present normal appearance, PERRL and EOMI ENT ENT exam: Present normal oropharynx and normal external ear exam Neck Neck exam: Present normal inspection and full ROM Chest Chest inspection: Present normal inspection and symmetric chest wall rise; Absent tenderness Respiratory Respiratory exam: Present normal lung sounds bilaterally; Absent respiratory distress Cardiovascular Cardiovascular exam: Present regular rate and normal rhythm Abdominal Exam Abdominal exam: Present soft; Absent distention, tenderness or guarding Extremities Exam Extremities exam: Present normal inspection; Absent edema or joint swelling Back Exam Back exam: Present normal inspection; Absent tenderness, paraspinal tenderness or vertebral tenderness Neurological Exam Neurological exam: Present alert, oriented X3 and other (Equal strength and sensation in bilateral lower extremities); Absent motor sensory deficit Psychiatric Psychiatric exam: Present normal affect and normal mood Skin Skin exam: Present warm, dry and normal color Lymphatic Lymphatic Findings: no adenopathy Medical Decision Making Medical Records Medical records reviewed: Yes I reviewed the patient's medical records. Tian Inquiry Pt receiving controlled substance: No Tian was queried for this patient: No Vital Signs: 08/23/23 00:51 Temperature 98.0 F Temperature Source Oral Pulse Rate [Left Radial] 85 Respiratory Rate 18 Blood Pressure [Right Arm] 131/67 Blood Pressure Mean [Right Arm] 88 Blood Pressure Source [Right Arm] Automatic Cuff Blood Pressure Position [Right Arm] Sitting 02 Sat by Pulse Oximetry 100 Oxygen Delivery Method Room Air Lab Data Lab results reviewed: Yes I reviewed the patient's lab results. Orders (Tests/Meds): ED MEDICATIONS Discontinued Medications Generic Name Dose Route Start Last Admin Trade Name Jazmin PRN Reason Stop Dose Admin Acetaminophen 1,000 mg 08/23/23 01:00 08/23/23 01:10 Acetaminophen 500mg Tab PO 08/23/23 01:01 1,000 mg ONCE ONE Administration Ketorolac Tromethamine 30 mg 08/23/23 01:00 08/23/23 01:11 Ketorolac 30mg/Ml Vial IV 08/23/23 01:01 Not Given ONCE ONE Ketorolac Tromethamine 30 mg 08/23/23 01:05 08/23/23 01:11 Ketorolac 30mg/Ml Vial IM 08/23/23 01:06 30 mg ONCE ONE Administration Lidocaine 1 each 08/23/23 01:00 08/23/23 01:11 Lidocaine 5% Transdermal Patch TP 08/23/23 01:01 1 each ONCE ONE Administration Methocarbamol 750 mg 08/23/23 01:00 08/23/23 01:11 Methocarbamol 500mg Tablet PO 08/23/23 01:01 750 mg ONCE ONE Administration Medical Decision Narrative: 22-year-old female, presentation complicated by history of hypothyroidism, morbid obesity, sciatica presents with radicular left lower extremity pain consistent with patient's prior sciatica. History was obtained via conversation with patient, family. On arrival, patient is [afebrile, hemodynamically stable, satting appropriately, alert, oriented x4, GCS 15], moving all extremities spontaneously. Full physical exam performed and significant for equal strength and sensation in bilateral lower extremities, no spinal or paraspinal tenderness. Differential includes but is not limited to sciatica, herniated disc, sacroiliitis, muscle spasm, epidural abscess, hematoma, cauda equina. No red flag history, no exam findings consistent with spinal emergency. History and exam is most consistent with exacerbation of chronic sciatica. CT imaging and MRI imaging was considered, but deemed unnecessary given history and exam. Patient was given p.o. Tylenol, IM Toradol, p.o. Robaxin, lidocaine patch for symptomatic management and correction of underlying abnormalities. On re-evaluation, patient [remains afebrile, HD stable.] She reports marked symptomatic improvement. Exam discussed with patient regarding managing symptoms. She will follow-up with PCP tomorrow. Patient discharged with prescription for Robaxin and lidocaine patches. Procedures Risk/Benefits of Procedure(s) Were Explained: Yes Critical Care Critical Care Time Critical Care Time: No
[2023-08-23] MEDS: ACETAMINOPHEN 500MG TAB 1000 MG PO (01:10)
[2023-08-23] MEDS: METHOCARBAMOL 500MG TABLET 750 MG PO (01:11)
[2023-08-23] MEDS: LIDOCAINE 5% TRANSDERMAL PATCH 1 EACH TP (01:11)
[2023-08-23] MEDS: KETOROLAC 30MG/ML VIAL 30 MG IM (01:11)
[2023-08-23 01:50] VITALS: BP 136/78; PULSE 78; RESP 16; TEMP 36.7; O2SAT 98
== END 2023-08-23 01:53 | disposition home or self-care (01) ==
PROVIDERS: Emergency Provider Emergency Medicine
DX: M54.42 Lumbago with sciatica, left side (principal); M51.36 Other intervertebral disc degeneration, lumbar region; E03.9 Hypothyroidism, unspecified; F17.290 Nicotine dependence, other tobacco product, uncomplicated
CPT/HCPCS: 96372; 99283

== ENCOUNTER 2023-09-19 12:02 | Outpatient (CLI) | payer MEDICAID, SELFPAY ==
[2023-09-19 12:26] LABS: Alanine Aminotransferase 16 U/L (12-78); Albumin Level 4.3 g/dl (3.5-5.0); Albumin/Globulin Ratio 1.6 (1.1-1.8); Alkaline Phosphatase 78 U/L (38-126); Anion Gap 9.4 mEq/L (5-15); Aspartate Amino Transferase 23 U/L (14-36); Bilirubin,Total 0.3 mg/dl (0.2-1.3); Blood Urea Nitrogen 10 mg/dl (7-17); Carbon Dioxide 28 mmol/L (22.0-30.0); Chloride 107 mmol/L (98-107); Chol/HDL Ratio 4.7 (1-3.5); Cholesterol 188 mg/dl (140-200); Estimated Glomerular Filt Rate 125 ml/min (>60); GFR (African American) 151 ML/MIN (>60); Globulin 2.7 g/dL (1.3-3.2); Glucose 90 mg/dl (74-100); HDL Cholesterol 40 mg/dl (40-60); Potassium 4.4 mmoL/L (3.5-5.1); Sodium 140 mmol/L (136-145); Triglycerides 56 mg/dl (30-150); VLDL Cholesterol 11 mg/dL (0-40)
[2023-09-19 12:56] LABS: Thyroid Stimulating Hormone 8.74 uIU/mL (0.465-4.68)
== END 2023-09-19 23:59 ==
LOC: LAB.DROPOF 12:02
PROVIDERS: PCP Family Medicine; Visit Provider Family Medicine
DX: E03.8 Other specified hypothyroidism (principal); Z79.899 Other long term (current) drug therapy
CPT/HCPCS: 80053; 80061; 84443

== ENCOUNTER 2024-01-13 15:09 | Emergency (ER) | payer MEDICAID, SELFPAY ==
[2024-01-13 16:00] VITALS: BP 122/75; PULSE 72; RESP 20; TEMP 37.1; O2SAT 99; BMI 48.7
[2024-01-13 16:31] LABS: UTC Strep Screen (Rapid) Negative (Negative)
--- NOTE | 2024-01-13 16:42 | EXP.UTC ---
Discharge Plan Disposition Patient Disposition: Home, Self-Care Condition: Good Prescriptions Prescriptions: No Action metformin 500 mg tablet 500 mg PO DAILY Qty: 30 2RF levothyroxine 50 mcg tablet 50 mcg PO DAILY Qty: 30 2RF Referrals Follow up/Referrals: Herlinda Piña APRN [Primary Care Provider] - See instructions Activity Restrictions/Add. Instructions Additional Instructions/Restrictions: No sign of a bacterial infection. Likely viral. Viruses can take 7-14 days to run their course. Nasal saline and bulb syringe or nose Binta to remove nasal drainage to help with nasal congestion. Hard to eat, drink, sleep with nasal congestion so important to keep this cleaned out. Monitor temp. Tylenol or Motrin as needed for pain or fever Encourage fluids, water, Gatorade, Powerade, Pedialyte if /toddler/child Warm salt water gargles Warm fluids Sore throat lozenges Sleep elevated Humidifier/vaporizer Follow-up immediately for new or worsening symptoms or no noticeable improvement over the next 48-72 hours. Clinical Impressions Clinical Impression: Upper respiratory infection Instructions Patient Instructions: DI for Viral Upper Respiratory Infection -- Adult Discharge ED Provider: Piper ([facility])Lamar [facility] [place] HPI General Stated complaint: sore throat,cough Mode of Arrival: Ambulatory Source of Information: Patient Limitations: No Limitations Time Seen by Provider: 01/13/24 16:44 Description of Symptoms (Recalled from Triage Doc. by RN): PATIENT C/O SORE THROAT, FEVER, COUGH AND CONGESTION THAT STARTED MONDAY HEENT Symptoms (Recalled from RN notes): Yes Resp Symptoms (Recalled from RN notes): Yes Skin Symptoms (Recalled from RN notes): No MS Symptoms (Recalled from RN notes): No Functional Status (Recalled from RN notes): WNL History of Present Illness Provider Complaint: 23 YR OLD FEMALE PRESENTS FOR C/O SORE THROAT, FEVER, COUGH AND CONGESTION THAT STARTED MONDAY Related Data Previous Rx's Medication Instructions Recorded levothyroxine 50 mcg tablet 50 mcg PO DAILY hypothyroid #30 07/28/23 tabs metformin 500 mg tablet 500 mg PO DAILY #30 tabs 08/23/23 Allergies Allergy/AdvReac Type Severity Reaction Status Date / Time human papillomavirus Allergy Mild Verified 09/19/23 10:38 vaccine, quadr [From Gardasil (PF)] Penicillins [PENICILLINS] Allergy Unknown I-HIVES Verified 09/19/23 10:38 Worker's Comp Is this a Worker's Comp case?: No [facility] Disclaimer: The information contained in this section may have been updated after the patient was seen, as this information can be updated by other users. 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) Smoking Status: Current every day smoker tobacco type: smokeless tobacco alcohol intake: never substance use type: denies use current occupational status: employed Travel in the last 8 weeks: None household members: family housing: house ROS Obtained: Yes All systems reviewed & no additional complaints except as documented Constitutional Constitutional: Reports system reviewed and no additional complaints, except as documented and Reports as per HPI Eyes Eyes: Reports system reviewed and no additional complaints, except as documented ENT Ears, Nose, Mouth, and Throat: Reports system reviewed and no additional complaints, except as documented, Reports as per HPI, Reports nasal congestion, Reports nasal discharge, Reports post nasal drip and Reports sore throat Cardiovascular Cardiovascular: Reports system reviewed and no additional complaints, except as documented Respiratory Respiratory: Reports system reviewed and no additional complaints, except as documented, Reports as per HPI and Reports cough Gastrointestinal Gastrointestingal: Reports system reviewed and no additional complaints, except as documented Musculoskeletal Musculoskeletal: Reports system reviewed and no additional complaints, except as documented Integumentary/Breasts Skin/Breast: Reports system reviewed and no additional complaints, except as documented Neurologic Neurologic: Reports system reviewed and no additional complaints, except as documented Endocrine Endocrine: Reports system reviewed and no additional complaints, except as documented Hematologic/Lymphatic Henatologic/Lymphatic: Reports system reviewed and no additional complaints, except as documented Allergic/Immunologic Allergic/Immunologic: Reports system reviewed and no additional complaints, except as documented Physical Exam General General appearance: alert and in no apparent distress Eye Eye exam: Present normal appearance ENT ENT exam: Present normal exam, normal oropharynx, mucous membranes moist and TM's normal bilaterally Respiratory Respiratory exam: Present normal lung sounds bilaterally Cardiovascular Cardiovascular exam: Present regular rate and normal rhythm Neurological Exam Neurological exam: Present alert and oriented X3 Skin Skin exam: Present warm and intact Medical Decision Making Medical Records Medical records reviewed: Yes I reviewed the patient's medical records. Tian Inquiry Pt receiving controlled substance: No Tian was queried for this patient: No Vital Signs: 01/13/24 16:00 Temperature 98.7 F Temperature Source Oral Pulse Rate [Left Brachial] 72 Respiratory Rate 20 Blood Pressure [Left Arm] 122/75 Blood Pressure Mean [Left Arm] 90 Blood Pressure Source [Left Arm] Automatic Cuff Blood Pressure Position [Left Arm] Sitting 02 Sat by Pulse Oximetry 99 Oxygen Delivery Method Room Air Lab Data Lab results reviewed: Yes I reviewed the patient's lab results. Lab Results 01/13/24 16:30: Strep Scn Rapid Clinic Negative Orders (Tests/Meds): ORDERS Category Date Time Status Strep Screen Confirmation Stat Micro 01/13/24 16:30 Received
[2024-01-13 16:53] VITALS: BP 122/75; PULSE 72; RESP 20; TEMP 37.1; O2SAT 99
[2024-01-13 16:58] LABS: Adenovirus,PCR Not Detected (NotDetected); Bordetella Pertussis Not Detected (NotDetected); Chlamydophila Pneumoniae, PCR Not Detected (NotDetected); Coronavirus 19, PCR Not Detected (NotDetected); Coronavirus 229E Not Detected (NotDetected); Coronavirus NL63 Not Detected (NotDetected); Coronavirus OC43 Not Detected (NotDetected); Coronovirus HKU1,PCR Not Detected (NotDetected); Influenza A, PCR Not Detected (NotDetected); Influenza AH1, 2009 Not Detected (NotDetected); Influenza AH1, PCR Not Detected (NotDetected); Influenza AH3,PCR Not Detected (NotDetected); Influenza B, PCR Not Detected (NotDetected); Mycoplasma Pneumoniae, PCR Not Detected (NotDetected); Parainfluenza 1, PCR Not Detected (NotDetected); Parainfluenza 2, PCR Not Detected (NotDetected); Parainfluenza 3, PCR Not Detected (NotDetected); Parainfluenza 4, PCR Not Detected (NotDetected); Respiratory Syncytial Virus Not Detected (NotDetected); Rhinovirus/Enterovirus Not Detected (NotDetected)
[2024-01-13 22:33] LABS: Human Metapneumovirus Detected (NotDetected)
== END 2024-01-13 17:04 | disposition home or self-care (01) ==
PROVIDERS: Emergency Provider Nurse Practitioner Family; PCP Family Medicine
DX: R05.9 Cough, unspecified (principal); B97.81 Human metapneumovirus as the cause of diseases classified elsewhere; R50.9 Fever, unspecified; R07.0 Pain in throat; J06.9 Acute upper respiratory infection, unspecified; F17.210 Nicotine dependence, cigarettes, uncomplicated
CPT/HCPCS: 87581; 87632; 87635; 87798; 87880; 99212; 99213; G0463

== ENCOUNTER 2024-01-26 18:47 | Emergency (ER) | payer MEDICAID, SELFPAY ==
[2024-01-26 18:50] VITALS: BP 130/88; PULSE 112; RESP 22; TEMP 37.1; O2SAT 98; BMI 49.4
--- NOTE | 2024-01-26 19:01 | XR_ITS ---
PROCEDURE INFORMATION: Exam: XR Left Ankle Exam date and time: 01/26/2024 7:10 PM Age: 23 years old Clinical indication: Injury or trauma; Fall; Blunt trauma; Ankle; Left; Additional info: Fall, injury TECHNIQUE: Imaging protocol: Radiologic exam of the left ankle. Views: 3 or more views. COMPARISON: CR XR FOOT LT 2V 01/26/2024 7:10 PM FINDINGS: Bones/joints: Normal. No acute fracture identified. Soft tissues: Normal. IMPRESSION: No acute findings.
--- NOTE | 2024-01-26 19:01 | XR_ITS ---
PROCEDURE INFORMATION: Exam: XR Left Foot Exam date and time: 01/26/2024 7:10 PM Age: 23 years old Clinical indication: Injury or trauma; Fall; Blunt trauma; Foot; Left; Additional info: Fall, injury TECHNIQUE: Imaging protocol: Radiologic exam of the left foot. Views: 1 or 2 views. COMPARISON: CR XR ANKLE LT MIN 3V 01/26/2024 7:10 PM FINDINGS: Bones/joints: Normal. No acute fracture identified. Soft tissues: Normal. IMPRESSION: No acute findings.
--- NOTE | 2024-01-26 19:01 | XR_ITS ---
PROCEDURE INFORMATION: Exam: XR Right Ankle Exam date and time: 01/26/2024 7:10 PM Age: 23 years old Clinical indication: Injury or trauma; Fall; Blunt trauma; Ankle; Right; Additional info: Fall, injury TECHNIQUE: Imaging protocol: Radiologic exam of the right ankle. Views: 3 or more views. COMPARISON: CR ANKCMRT XR ankle RT min 3V 11/14/2018 12:38 PM FINDINGS: Bones/joints: Normal. No acute fracture identified. Soft tissues: Normal. IMPRESSION: No acute findings.
--- NOTE | 2024-01-26 19:01 | PC.NURSE ---
DR KING AT BEDSIDE
--- NOTE | 2024-01-26 19:02 | ED_ITS ---
Discharge Plan Disposition Patient Disposition: Home, Self-Care Prescriptions Prescriptions: No Action metformin 500 mg tablet 500 mg PO DAILY Qty: 30 2RF levothyroxine 50 mcg tablet 50 mcg PO DAILY Qty: 30 2RF Referrals Follow up/Referrals: Herlinda Piña APRN [Primary Care Provider] - See instructions Prashant Irizarry DO [Staff Physician] - See instructions Activity Restrictions/Add. Instructions Additional Instructions/Restrictions: Your walking boot and use crutches and you may bear weight as tolerated expect 1 to 2 weeks for significant improvement you may take 800 mg of ibuprofen [id number] 3 times a day as needed with food. Please follow-up with her orthopedic surgeon in 1 to 2 weeks if not improving for evaluation for possible outpatient MRI. Clinical Impressions Clinical Impression: Right ankle sprain, Left ankle sprain Discharge ED Provider: David Dickerson General Adult HPI General Chief complaint: Extremity Injury, Lower Stated complaint: AO 01/26/24 1815 Injury left ankle,r leg Time Seen by Provider: 01/26/24 18:59 History of Present Illness HPI narrative: Patient is a 23-year-old female presents today with bilateral ankle injuries. She states that 2 x 4 broke on her deck and she fell through mainly sustaining injury to the left lower extremity/ankle. Has some pain in the lateral aspect of her right leg and the right lateral aspect of her ankle but is primarily on the left. Was able to walk predominantly with bearing weight on the right side. No injuries elsewhere. Related Data Previous Rx's Medication Instructions Recorded levothyroxine 50 mcg tablet 50 mcg PO DAILY hypothyroid #30 07/28/23 tabs metformin 500 mg tablet 500 mg PO DAILY #30 tabs 08/23/23 Allergies Allergy/AdvReac Type Severity Reaction Status Date / Time human papillomavirus Allergy Mild Verified 09/19/23 10:38 vaccine, quadr [From Gardasil (PF)] Penicillins [PENICILLINS] Allergy Unknown I-HIVES Verified 09/19/23 10:38 [facility] Disclaimer: The information contained in this section may have been updated after the patient was seen, as this information can be updated by other users. 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 History , [employer]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[employer]) Smoking Status: Never smoker alcohol intake: never substance use type: denies use current occupational status: employed Travel in the last 8 weeks: None household members: family housing: house ROS Obtained: Yes All systems reviewed & no additional complaints except as documented Physical Exam General General appearance: alert and in no apparent distress Respiratory Respiratory exam: Present normal lung sounds bilaterally Cardiovascular Cardiovascular exam: Present regular rate Extremities Exam Extremities exam: Present other (Swelling over the lateral malleolus of the right ankle with some skin abrasions left ankle she has tenderness and swelling over the distal tib-fib ankle and proximal foot neurovascular intact on both) Neurological Exam Neurological exam: Present alert and oriented X3 Medical Decision Making Tian Inquiry Pt receiving controlled substance: No Vital Signs: 01/26/24 18:50 Temperature 98.8 F Temperature Source Oral Pulse Rate [Right] 112 H Respiratory Rate 22 Blood Pressure [Right Arm] 130/88 Blood Pressure Mean [Right Arm] 102 02 Sat by Pulse Oximetry 98 Oxygen Delivery Method Room Air Orders (Tests/Meds): ED MEDICATIONS Discontinued Medications Generic Name Dose Route Start Last Admin Trade Name Jazmin PRN Reason Stop Dose Admin Acetaminophen 1,000 mg 01/26/24 19:01 01/26/24 19:24 Acetaminophen 500mg Tab PO 01/26/24 19:02 1,000 mg ONCE ONE Administration Ibuprofen 800 mg 01/26/24 19:01 01/26/24 19:24 Ibuprofen 400 Mg Tablet PO 01/26/24 19:02 800 mg ONCE ONE Administration ORDERS Category Date Time Status Ankle XR - Left minimum 3 Views [XR ankle LT min 3V] Exams 01/26/24 19:01 Taken Stat Ankle XR -Right minimum 3 Views [XR ankle RT min 3V] Exams 01/26/24 19:01 Taken Stat Foot XR left 2 views [XR foot LT 2V] Stat Exams 01/26/24 19:01 Taken Medical Decision Narrative: 23-year-old female presenting today with above history we will get x-rays of bilateral ankles and left foot Tylenol and ibuprofen administered. X-rays performed which I first interpreted which show no fracture or dislocation on my personal read. She has been given a walking boot and crutches told to bear weight as tolerated will follow-up with orthopedic surgeon 1 to 2-week without any significant improvement supportive care discussed. She was discharged in stable condition. Critical Care Critical Care Time Critical Care Time: No
[2024-01-26] MEDS: ACETAMINOPHEN 500MG TAB 1000 MG PO (19:24)
[2024-01-26] MEDS: IBUPROFEN 400 MG TABLET 800 MG PO (19:24)
[2024-01-26 20:10] VITALS: BP 128/78; PULSE 100; RESP 22; TEMP 37.1; O2SAT 98
== END 2024-01-26 20:11 | disposition home or self-care (01) ==
PROVIDERS: Emergency Provider Student in an Organized Health Care Education/Training Program; PCP Family Medicine
DX: S93.401A Sprain of unspecified ligament of right ankle, initial encounter (principal); S93.402A Sprain of unspecified ligament of left ankle, initial encounter; W13.3XXA Fall through floor, initial encounter
CPT/HCPCS: 73610; 73620; 99283

== ENCOUNTER 2024-03-05 09:58 | Outpatient (CLI) | payer MEDICAID, SELFPAY ==
[2024-03-05 19:02] LABS: Basophils % 0.6 % (0.1-2.0); Eosinophils # 0.1 K/mm3 (0.0-0.4); Eosinophils % 1.7 % (0.1-12.0); Hematocrit 40.6 % (37.0-47.0); Hemoglobin 12.8 g/dL (12.2-16.2); Lymphocytes # 1.3 K/mm3 (0.7-4.5); Lymphocytes % 28.3 % (10-50); Mean Corpuscular HGB Conc 31.6 g/dL (31.8-35.4); Mean Corpuscular Hemoglobin 29.6 pg (27.0-31.2); Mean Corpuscular Volume 93.7 fl (81-99); Mean Platelet Volume 8.8 fl (7.4-10.4); Monocytes # 0.2 K/mm3 (0.1-1.0); Monocytes % 4.8 % (1.7-9.3); Neutrophils % 64.6 % (37.0-80.0); Platelet Count 300 K/mm3 (142-424); Red Blood Count 4.33 M/mm3 (4.20-5.40); Red Cell Distribution Width 14.9 % (11.5-17.5); White Blood Count 4.7 K/mm3 (4.8-10.8)
[2024-03-05 19:21] LABS: Alanine Aminotransferase 14 U/L (12-78); Albumin/Globulin Ratio 1.3 (1.1-1.8); Alkaline Phosphatase 78 U/L (38-126); Anion Gap 9.2 mEq/L (5-15); Aspartate Amino Transferase 21 U/L (14-36); Bilirubin,Total 0.5 mg/dl (0.2-1.3); Blood Urea Nitrogen 11 mg/dl (7-17); Calcium 8.9 mg/dl (8.4-10.2); Carbon Dioxide 27 mmol/L (22.0-30.0); Chloride 108 mmol/L (98-107); Chol/HDL Ratio 4.6 (1-3.5); Cholesterol 176 mg/dl (140-200); Estimated Glomerular Filt Rate 124 ml/min (>60); GFR (African American) 150 ML/MIN (>60); Glucose 77 mg/dl (74-100); HDL Cholesterol 38 mg/dl (40-60); Potassium 4.2 mmoL/L (3.5-5.1); Sodium 140 mmol/L (136-145); Triglycerides 88 mg/dl (30-150); VLDL Cholesterol 18 mg/dL (0-40)
[2024-03-05 19:32] LABS: Direct LDL Cholesterol 107.71 mg/dL (100-129)
[2024-03-05 19:37] LABS: 25-OH Vitamin D, Total 26.4 ng/mL (30-100)
[2024-03-05 19:39] LABS: Triiodothryronine (T3) Uptake 32 % (23.5-40.5)
[2024-03-05 19:40] LABS: Free Thyroxine Index 2.7 ug/dL (5.93-13.13); T4 (Thyroxine) 8.4 ug/dl (5.53-11.0)
[2024-03-05 19:53] LABS: Thyroid Stimulating Hormone 6.76 uIU/mL (0.465-4.68)
== END 2024-03-05 23:59 | disposition home or self-care (01) ==
LOC: LAB.DROPOF 03-06 09:59
PROVIDERS: PCP Student in an Organized Health Care Education/Training Program; Visit Provider Student in an Organized Health Care Education/Training Program
DX: E03.9 Hypothyroidism, unspecified (principal); E55.9 Vitamin D deficiency, unspecified
CPT/HCPCS: 80050; 80053; 80061; 82306; 84436; 84443; 84479; 85025

== ENCOUNTER 2024-04-14 13:33 | Observation (INO) | payer SELFPAY ==
[2024-04-14 13:33] VITALS: BP 114/68; PULSE 88; RESP 20; TEMP 36.6; O2SAT 100; BMI 50.5
--- NOTE | 2024-04-14 13:52 | XR_ITS ---
PROCEDURE INFORMATION: Exam: XR Right Tibia and Fibula Exam date and time: 04/14/2024 1:57 PM Age: 23 years old Clinical indication: Injury or trauma; Fall; Blunt trauma; Lower leg; Right; Additional info: Fall hyperextended knee TECHNIQUE: Imaging protocol: Radiologic exam of the right tibia and fibula. Views: 2 views. COMPARISON: CR XR TIBIA FIBULA RT 2V 04/14/2024 1:57 PM FINDINGS: Bones/joints: Subtle cortical irregularity medial aspect proximal tibia again suspicious for fracture. Avulsion fracture of the proximal fibula. Soft tissues: Soft tissue swelling in the expected region of the medial collateral ligament. IMPRESSION: 1. Avulsion fracture of the proximal fibula. 2. Subtle cortical irregularity medial aspect proximal tibia again suspicious for fracture.
--- NOTE | 2024-04-14 13:52 | XR_ITS ---
PROCEDURE INFORMATION: Exam: XR Right Femur Exam date and time: 04/14/2024 1:57 PM Age: 23 years old Clinical indication: Injury or trauma; Fall; Blunt trauma; Thigh or upper leg; Right; Additional info: Fall hyperextended knee TECHNIQUE: Imaging protocol: Radiologic exam of the right femur. Views: 2 views. COMPARISON: CR XR FEMUR RT 2V 04/14/2024 1:57 PM FINDINGS: Bones/joints: Unremarkable. No acute fracture. Incomplete visualization of suspected proximal tibial fracture, medial aspect. Clinically correlate Soft tissues: Unremarkable. IMPRESSION: No acute findings involving the femur.
--- NOTE | 2024-04-14 13:54 | XR_ITS ---
PROCEDURE INFORMATION: Exam: XR Right Knee Exam date and time: 04/14/2024 1:57 PM Age: 23 years old Clinical indication: Injury or trauma; Fall; Blunt trauma; Knee; Right; Additional info: Fall hyperextended knee TECHNIQUE: Imaging protocol: Radiologic exam of the right knee. Views: 3 views. COMPARISON: CR XR FEMUR RT 2V 04/14/2024 1:57 PM FINDINGS: Bones/joints: Avulsion fracture of the proximal fibula. Subtle cortical irregularity involving the medial aspect of the proximal tibia. Fracture could not be excluded. Soft tissues: Soft tissue swelling most pronounced i superficial to the medial knee compartment. IMPRESSION: 1. Avulsion fracture of the proximal fibula. 2. Subtle cortical irregularity involving the medial aspect of the proximal tibia. Fracture could not be excluded.
[2024-04-14] MEDS: HYDROMORPHONE 2MG/ML SYRINGE 0.5 MG IV (14:15)
--- NOTE | 2024-04-14 14:15 | PC.NURSE ---
PELON ACEVEDO AT BEDSIDE
--- NOTE | 2024-04-14 14:21 | ED_ITS ---
Discharge Plan Disposition Patient Disposition: Home, Self-Care Condition: Good Prescriptions Prescriptions: New oxycodone 5 mg tablet 5 mg PO Q6H PRN (Reason: pain) Qty: 10 0RF No Action levothyroxine 50 mcg tablet 50 mcg PO DAILY Qty: 30 2RF sertraline 50 mg tablet 50 mg PO DAILY Qty: 30 2RF metformin 500 mg tablet 500 mg PO DAILY Qty: 30 2RF cholecalciferol (vitamin D3) 50 mcg (2,000 unit) capsule 50 mcg PO DAILY Qty: 90 0RF Referrals Follow up/Referrals: Herlinda Piña APRN [Primary Care Provider] - See instructions Prashant Irizarry DO [Staff Physician] - See instructions Activity Restrictions/Add. Instructions Additional Instructions/Restrictions: You need to start taking an aspirin a day. Nonweightbearing with crutches. Please call in the morning to establish appointment with orthopedics. Return to the ER for any worsening signs or symptoms as needed. Clinical Impressions Clinical Impression: Closed fracture of tibial plateau, Fracture of fibula, proximal Instructions Patient Instructions: DI for Tibial Plateau Fracture Print Language Print Language: [place] Discharge ED Provider: Priyank Fulton General Adult HPI <THIEN Thibodeaux - Last Filed: 04/14/24 18:38> General Chief complaint: Fall Stated complaint: fall Time Seen by Provider: 04/14/24 14:07 Mode of Arrival: EMS Source of Information: Patient and EMS Limitations: No Limitations Description of Symptoms (Recalled from ER Triage Doc. by RN): pt slipped in water an hyper extended her right knee no loc or head injury, pt is very anxious and tearful upon triage, History of Present Illness HPI narrative: Patient presents for evaluation of a right knee injury. Patient was running in her house to take something away from a child that the child should not have when she slipped and fell reportedly hyperextending her right knee. Patient reports that she heard a pop . She denies any numbness or tingling and reports that all of her pain is at her right knee. She denies any other injury. She did not strike her head or lose consciousness. Related Data Previous Rx's ?Medication ?Instructions ?Recorded levothyroxine 50 mcg tablet 50 mcg PO DAILY hypothyroid #30 03/05/24 tabs metformin 500 mg tablet 500 mg PO DAILY #30 tabs 03/05/24 sertraline 50 mg tablet 50 mg PO DAILY #30 tabs 03/05/24 cholecalciferol (vitamin D3) 50 50 mcg PO DAILY #90 caps 03/07/24 mcg (2,000 unit) capsule oxycodone 5 mg tablet 5 mg PO Q6H PRN pain #10 tabs 04/14/24 Allergies Allergy/AdvReac Type Severity Reaction Status Date / Time human papillomavirus Allergy Mild Verified 03/05/24 10:22 vaccine, quadr [From Gardasil (PF)] Penicillins [PENICILLINS] Allergy Unknown I-HIVES Verified 03/05/24 10:22 PFSH <THIEN Thibodeaux - Last Filed: 04/14/24 18:38> [facility] Disclaimer: The information contained in this section may have been updated after the patient was seen, as this information can be updated by other users. 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 Sciatica Second trimester Fecal impaction Cervical paraspinal muscle spasm Constipation Callus of foot Plantar fasciitis, right Foot pain Exposure to COVID-19 virus Sinusitis Otitis media Viral syndrome Right hand pain Fall Right wrist sprain URI (upper respiratory infection) Sciatica Low back pain Lumbar radiculopathy Degenerative disc disease, lumbar Low back strain Ankle sprain Hypothyroidism (~04/16/18) Vitamin D deficiency (~04/16/18) Mononucleosis (~04/16/18) Weakness Local reaction to immunization Strep throat Bilateral otitis media Surgical History No pertinent past surgical history Family History Family/Other FHx: mental illness Diabetes Hypertension Thyroid disorder Social History Smoking Status: Current every day smoker tobacco type: smokeless tobacco alcohol intake: never substance use type: denies use current occupational status: employed Travel in the last 8 weeks: None household members: family housing: house <THIEN Thibodeaux - Last Filed: 04/14/24 18:38> ROS Obtained: Yes Systems reviewed as appropriate & no additional complaints except as documented Physical Exam <THIEN Thibodeaux - Last Filed: 04/14/24 18:38> General General appearance: alert, anxious and obese Respiratory Respiratory exam: Present normal lung sounds bilaterally Cardiovascular Cardiovascular exam: Present regular rate Neurological Exam Neurological exam: Present alert and oriented X3 Medical Decision Making <THIEN Thibodeaux - Last Filed: 04/14/24 18:38> Tian Inquiry Pt receiving controlled substance: No Vital Signs: 04/14/24 13:33 Temperature 97.9 F Temperature Source Oral Pulse Rate [Right Radial] 88 Respiratory Rate 20 Blood Pressure [Right Arm] 114/68 Blood Pressure Mean [Right Arm] 83 02 Sat by Pulse Oximetry 100 Oxygen Delivery Method Room Air Lab Data Lab Results 04/14/24 15:35: Serum HCG, Qual Negative Orders (Tests/Meds): ED MEDICATIONS Discontinued Medications Generic Name Dose Route Start Last Admin Trade Name Ramseyq PRN Reason Stop Dose Admin Diazepam 5 mg 04/14/24 16:35 04/14/24 16:36 Diazepam 10mg/2ml Syringe IV 04/14/24 16:36 5 mg ONCE ONE Administration Hydromorphone HCl 0.5 mg 04/14/24 14:15 04/14/24 14:15 Hydromorphone 2mg/Ml Syringe IV 04/14/24 14:16 0.5 mg ONCE ONE Administration ORDERS Category Date Time Status CT knee RT wo con Stat Cat Scan 04/14/24 15:09 Completed XR femur RT 2V Stat Exams 04/14/24 13:52 Completed XR knee RT 3V Stat Exams 04/14/24 13:54 Completed XR tibia fibula RT 2V Stat Exams 04/14/24 13:52 Completed Serum [HCG Qualitative, Serum] Stat Lab 04/14/24 15:35 Completed Medical Decision Narrative: In summary patient is a 23-year-old female who presents to the emergency department for evaluation of right knee injury. Patient is hemodynamically stable upon arrival, afebrile. Physical exam is remarkable for tenderness to palpation about the right knee but particularly on the lateral side. No palpable bony deformity. Patient is neurovascularly intact distally however range of motion testing is limited due to the patient's pain. She denies any hip pain or ankle pain. She is neurovascular intact distally. Differential diagnosis includes fracture versus soft tissue injury. Initial workup will be conducted with plain film x-rays. Initial interventions include Toradol Tylenol. Patient received opiates en route via EMS. Initial workup reviewed by me shows a proximal fibula fracture a tibial plateau fracture also posterior medial femoral condyle defect which may be old. Given this patient will be placed in a knee immobilizer with crutches and instructed on nonweightbearing. She is to call orthopedics in the morning for an appointment. Patient return to ER for any worsening signs or symptoms <Priyank Fulton MD - Last Filed: 04/14/24 19:14> Vital Signs: 04/14/24 13:33 Temperature 97.9 F Temperature Source Oral Pulse Rate [Right Radial] 88 Respiratory Rate 20 Blood Pressure [Right Arm] 114/68 Blood Pressure Mean [Right Arm] 83 02 Sat by Pulse Oximetry 100 Oxygen Delivery Method Room Air Lab Data Lab Results 04/14/24 15:35: Serum HCG, Qual Negative Orders (Tests/Meds): ED MEDICATIONS Discontinued Medications Generic Name Dose Route Start Last Admin Trade Name Ramseyq PRN Reason Stop Dose Admin Diazepam 5 mg 04/14/24 16:35 04/14/24 16:36 Diazepam 10mg/2ml Syringe IV 04/14/24 16:36 5 mg ONCE ONE Administration Hydromorphone HCl 0.5 mg 04/14/24 14:15 04/14/24 14:15 Hydromorphone 2mg/Ml Syringe IV 04/14/24 14:16 0.5 mg ONCE ONE Administration ORDERS Category Date Time Status CT knee RT wo con Stat Cat Scan 04/14/24 15:09 Completed XR femur RT 2V Stat Exams 04/14/24 13:52 Completed XR knee RT 3V Stat Exams 04/14/24 13:54 Completed XR tibia fibula RT 2V Stat Exams 04/14/24 13:52 Completed Serum [HCG Qualitative, Serum] Stat Lab 04/14/24 15:35 Completed Medical Decision Narrative: In summary patient is a 23-year-old female who presents to the emergency department for evaluation of right knee injury. Patient is hemodynamically stable upon arrival, afebrile. Physical exam is remarkable for tenderness to palpation about the right knee but particularly on the lateral side. No palpable bony deformity. Patient is neurovascularly intact distally however range of motion testing is limited due to the patient's pain. She denies any hip pain or ankle pain. She is neurovascular intact distally. Differential diagnosis includes fracture versus soft tissue injury. Initial workup will be conducted with plain film x-rays. Initial interventions include Toradol Tylenol. Patient received opiates en route via EMS. Initial workup reviewed by me shows a proximal fibula fracture a tibial plateau fracture also posterior medial femoral condyle defect which may be old. Given this patient will be placed in a knee immobilizer with crutches and instructed on nonweightbearing. She is to call orthopedics in the morning for an appointment. Patient return to ER for any worsening signs or symptoms I was consulted by the JULIEN, and we discussed the complexity of the problems wilmar green addressed. I approved the treatment and management plan for this patient's care in the Emergency Department, thus performing a substantive portion of the medical decision making. Priyank Fulton MD Critical Care <THIEN Thibodeaux - Last Filed: 04/14/24 18:38> Critical Care Time Critical Care Time: No
--- NOTE | 2024-04-14 15:09 | CT_ITS ---
PROCEDURE INFORMATION: Exam: CT Right Lower Extremity, Knee Exam date and time: 04/14/2024 4:45 PM Age: 23 years old Clinical indication: Injury or trauma; Other: Right knee injury, proximal fibula fracture; Blunt trauma TECHNIQUE: Imaging protocol: CT of the right lower extremity without contrast was performed. Exam focused on the knee. Radiation optimization: All CT scans at this facility use at least one of these dose optimization techniques: automated exposure control; mA and/or kV adjustment per patient size (includes targeted exams where dose is matched to clinical indication); or iterative reconstruction. COMPARISON: CR XR KNEE RT 3V 04/14/2024 1:57 PM FINDINGS: Bones/joints: comminuted fracture of the mid to medial aspect of the tibial plateau, including the tibial spines. No significant displacement of the fracture fragments. Comminuted fracture of the fibular head. Approximate 8 mm displacement of the fracture fragments. Suprapatellar effusion. Soft tissues: Soft tissue swelling most pronounced superficial to the medial femoral condyle. IMPRESSION: 1. Comminuted fracture of the mid to medial aspect of the tibial plateau, including the tibial spines. No significant displacement of the fracture fragments. 2. Comminuted fracture of the fibular head. Approximate 8 mm displacement of the fracture fragments.
[2024-04-14 15:57] LABS: HCG Qualitative, Serum Negative (Negative)
--- NOTE | 2024-04-14 16:27 | PC.NURSE ---
FAMILY UPDATED AT THIS TIME
[2024-04-14] MEDS: diazePAM 10MG/2ML SYRINGE 5 MG IV (16:36)
--- NOTE | 2024-04-14 19:37 | PC.NURSE ---
call placed to house for bed assignment.
--- NOTE | 2024-04-14 19:45 | P.HP_ITS ---
History of Present Illness *Admission Date: 04/14/24 *Reason for visit:: fall with fracture *History of present illness: This is a morbidly obese 23-year-old female, with also PMHx of hypothyroidism; recent bilateral ankle sprain who presented to the emergency department for evaluation of right knee injury. Earlier today, at home, Patient she had to get up and run to prevent her child to keep playing with an electrical cord, she slipped out, falling ground level. In order to avoid landing over her child she tried to twist her body ending landing on her right knee. Patient is hemodynamically stable upon arrival, afebrile. Physical exam is remarkable for tenderness to palpation about the right knee but particularly on the lateral side. No palpable bony deformity. Patient is neurovascularly intact distally however range of motion testing is limited due to the patient's pain. She denies any hip pain or ankle pain. She is neurovascular intact distally. [facility] Disclaimer: The information contained in this section may have been updated after the patient was seen, as this information can be updated by other users. 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 Sciatica Second trimester Fecal impaction Cervical paraspinal muscle spasm Constipation Callus of foot Plantar fasciitis, right Foot pain Exposure to COVID-19 virus Sinusitis Otitis media Viral syndrome Right hand pain Fall Right wrist sprain URI (upper respiratory infection) Sciatica Low back pain Lumbar radiculopathy Degenerative disc disease, lumbar Low back strain Ankle sprain Hypothyroidism (~04/16/18) Vitamin D deficiency (~04/16/18) Mononucleosis (~04/16/18) Weakness Local reaction to immunization Strep throat Bilateral otitis media Surgical History No pertinent past surgical history Family History Family/Other FHx: mental illness Diabetes Hypertension Thyroid disorder Social History (Updated 04/14/24 @ 20:34 by Kayli Powell RN) Smoking Status: Current every day smoker tobacco type: smokeless tobacco alcohol intake: never substance use type: denies use current occupational status: employed Travel in the last 8 weeks: None household members: family housing: house Review of Systems Review of Systems Review of systems:: pertinent systems reviewed and negative unless documented below Meds Home Medications and Allergies Home Medications ?Medication ?Instructions ?Recorded ?Confirmed ?Type levothyroxine 50 mcg tablet 50 mcg PO DAILY hypothyroid #30 03/05/24 04/14/24 Rx tabs metformin 500 mg tablet 500 mg PO DAILY #30 tabs 03/05/24 04/14/24 Rx sertraline 50 mg tablet 50 mg PO DAILY #30 tabs 03/05/24 04/14/24 Rx cholecalciferol (vitamin D3) 50 50 mcg PO DAILY #90 caps 03/07/24 04/14/24 Rx mcg (2,000 unit) capsule oxycodone 5 mg tablet 5 mg PO Q6H PRN pain #10 tabs 04/14/24 Rx New Prescriptions to Start Prescriptions: oxycodone Priyank [place] Allergies Allergy/AdvReac Type Severity Reaction Status Date / Time human papillomavirus Allergy Mild Verified 03/05/24 10:22 vaccine, quadr [From Gardasil (PF)] Penicillins [PENICILLINS] Allergy Unknown I-HIVES Verified 03/05/24 10:22 Exam Data for Last 24 hours Vital signs and Labs for Last 24 Hours: Temp Pulse Resp BP Pulse Ox O2 Del Method 97.9 F 88 20 114/68 100 Room Air 04/14/24 13:33 04/14/24 13:33 04/14/24 13:33 04/14/24 13:33 04/14/24 13:33 04/14/24 13:33 Laboratory Results - last 24 hr 04/14/24 15:35: Serum HCG, Qual Negative I & O for Last 24 hours: Intake & Output 04/11/24 04/12/24 04/13/24 04/14/24 23:59 23:59 23:59 23:59 Weight 155.129 kg Constitutional Constitutional: moderate distress, morbidly obese and cooperative *Routine HEENT Exam Head: Present normocephalic Eye: Present EOMI and PERRL ENT: Present mucous membranes moist *Routine Neck Exam Neck: Present supple and full ROM; Absent lymphadenopathy *Routine Respiratory Exam Respiratory: Present CTA bilaterally, normal respiratory effort and symmetric chest movement; Absent respiratory distress *Routine Cardiovascular Exam Cardiovascular: Present RRR, Normal S1, Normal S2 and tachycardia *Routine Abdominal Exam Abdominal: Present soft, normoactive bowel sounds and obese; Absent tenderness *Routine Rectal Exam Rectal:: deferred *Routine Genitalia Exam Genitalia:: deferred *Routine Extremities Exam Extremities: Present edema and joint swelling; Absent cyanosis or clubbing Comments: right knee tenderness and swelling. brace in place *Routine Skin Exam Skin: Present warm; Absent rash *Routine Neurological Exam Neurological: Present alert and oriented X3; Absent sensory deficit Routine Psychiatric Exam Psychiatric: Present normal thought process, cooperative and depressed H&P: Result Imaging and Cardiology EKG: Status: image reviewed by me, Preliminary report and final report CT knee: Status: image reviewed by me, Preliminary report and final report trauma Xrays: Status: image reviewed by me, Preliminary report and final report Assessment and Plan *Assessment and plan (1) Fracture of fibula, proximal: Status: Acute Qualifiers: Encounter type: initial encounter Fracture type: closed Laterality: right Fracture morphology: unspecified fracture morphology Qualified Code(s): S82.831A - Other fracture of upper and lower end of right fibula, initial encounter for closed fracture Category: Medical Code(s): S82.839A - Other fracture of upper and lower end of unspecified fibula, initial encounter for closed fracture (2) Closed fracture of tibial plateau: Status: Acute Qualifiers: Encounter type: initial encounter Laterality: right Qualified Code(s): S82.141A - Displaced bicondylar fracture of right tibia, initial encounter for closed fracture Category: Medical Code(s): S82.143A - Displaced bicondylar fracture of unspecified tibia, initial encounter for closed fracture (3) Adult hypothyroidism: Status: Acute Category: Medical Code(s): E03.9 - Hypothyroidism, unspecified (4) Obesity, morbid, BMI 50 or higher: Status: Acute Category: Medical Code(s): E66.01 - Morbid (severe) obesity due to excess calories Plan morbidly obese 23-year-old female, with also PMHx of hypothyroidism; who presented to the emergency department for evaluation of right knee injury. on arrival Physical exam is remarkable for tenderness to palpation about the right knee but particularly on the lateral side. No palpable bony deformity. Initial plain films was obtained. CT also showed a proximal fibula fracture a tibial plateau fracture also posterior medial femoral condyle defect which may be old. Given this patient will be placed in a knee immobilizer. patient failed to ambulated on crutches, while on ED. Discussion was made for admission. Due to a large BMI, patient and inability to safe ambulate, patient may be beneficial to admit for PT/OT evaluation and pain control. agreed for inpatient management. Plan as follow: -Fracture of the fibula proximal. Right side Right closed fracture of tibial plateau. After ground-level mechanical fall Admit patient for medical surgical services. Right lower extremity in immobilizer placed. No weightbearing Orthopedic consult. Appreciate their insights PT/OT consulted for eval. patient morbidly obese that lives in a trailer/home with so many physical barrier including stairs. Pain management. Tylenol/ Toradol/morphine for severe pain frequent monitor for neurovascular state on her right lower extremity. Obtain labs in the morning Hypothyroidism Patient on home 50 mcg Synthroid. Resumed History of depression On sertraline Morbidly obese. BMI greater than 50 Will complicate all aspects of care. Patient related radiation for with metformin. PCP to follow-up. Lovenox 60 mg twice a day. DVT prophylaxis. Protonix for GI bleed protection Full code
[2024-04-14 19:58] VITALS: BP 138/70; PULSE 90; RESP 20; TEMP 36.7; O2SAT 98
--- NOTE | 2024-04-14 19:59 | PC.NURSE ---
Patient arrived to floor via stretcher from ED at 19:56.
[2024-04-14 20:00] VITALS: BP 126/62; PULSE 94; RESP 18; TEMP 36.8; O2SAT 100; BMI 51.4
[2024-04-14] MEDS: PANTOPRAZOLE 40MG TABLET 40 MG PO (20:19)
[2024-04-14] MEDS: ENOXAPARIN 60MG/0.6ML SYRINGE 60 MG SQ (20:19)
[2024-04-14] MEDS: MORPHINE 4MG/ML SYRINGE 4 MG IV (20:20)
[2024-04-15] MEDS: MORPHINE 4MG/ML SYRINGE 4 MG IV ×4 (00:19→15:41)
[2024-04-15 04:00] VITALS: BP 133/74; PULSE 114; RESP 20; TEMP 36.9; O2SAT 96; BMI 51.4
[2024-04-15] MEDS: KETOROLAC 30MG/ML VIAL 30 MG IV (04:34)
--- NOTE | 2024-04-15 05:09 | PC.NURSE ---
Pt is alert and oriented x4. Pt has complained of severe pain this shift and has been treated per MAR. Pt right knee is swollen and pedal pulses remain +2. Pt was treated for inflammation per OCT. Additional comfort measures offered (ice pack) Pt refused. Pt has had no other acute changes.
[2024-04-15 06:51] LABS: Basophils % 0.5 % (0.1-2.0); Eosinophils % 0.4 % (0.1-12.0); Hematocrit 35.5 % (37.0-47.0); Hemoglobin 11.2 g/dL (12.2-16.2); Lymphocytes # 1.4 K/mm3 (0.7-4.5); Lymphocytes % 17.1 % (10-50); Mean Corpuscular HGB Conc 31.6 g/dL (31.8-35.4); Mean Corpuscular Hemoglobin 29.4 pg (27.0-31.2); Mean Corpuscular Volume 92.9 fl (81-99); Mean Platelet Volume 7.7 fl (7.4-10.4); Monocytes # 0.4 K/mm3 (0.1-1.0); Monocytes % 5.2 % (1.7-9.3); Neutrophils # 6.1 K/mm3 (1.8-7.8); Neutrophils % 76.9 % (37.0-80.0); Platelet Count 272 K/mm3 (142-424); Red Blood Count 3.82 M/mm3 (4.20-5.40); Red Cell Distribution Width 14.8 % (11.5-17.5)
[2024-04-15 06:54] LABS: Albumin Level 3.8 g/dl (3.5-5.0); Chloride 106 mmol/L (98-107); Potassium 3.8 mmoL/L (3.5-5.1); Sodium 134 mmol/L (136-145)
[2024-04-15 06:57] LABS: Alanine Aminotransferase 19 U/L (12-78); Albumin/Globulin Ratio 1.4 (1.1-1.8); Alkaline Phosphatase 70 U/L (38-126); Anion Gap 7.8 mEq/L (5-15); Aspartate Amino Transferase 33 U/L (14-36); Bilirubin,Total 0.8 mg/dl (0.2-1.3); Blood Urea Nitrogen 9 mg/dl (7-17); Calcium 8.3 mg/dl (8.4-10.2); Carbon Dioxide 24 mmol/L (22.0-30.0); Creatinine Clearance Estimated 147 mL/min (50-200); Estimated Glomerular Filt Rate 124 ml/min (>60); GFR (African American) 150 ML/MIN (>60); Globulin 2.8 g/dL (1.3-3.2); Glucose 117 mg/dl (74-100); Total Protein,Serum 6.6 g/dl (6.3-8.2)
[2024-04-15 06:58] LABS: Magnesium 1.9 mg/dl (1.6-2.3)
[2024-04-15 08:00] VITALS: BP 111/63; PULSE 91; RESP 18; TEMP 36.9; O2SAT 97
[2024-04-15] MEDS: CHOLECALCIFEROL 1,000 UNITS (25MCG) TABLET 50 MCG PO (08:28)
[2024-04-15] MEDS: LEVOTHYROXINE 50MCG (0.05MG) TAB 50 MCG PO (08:28)
[2024-04-15] MEDS: ENOXAPARIN 60MG/0.6ML SYRINGE 60 MG SQ (08:28)
[2024-04-15] MEDS: SERTRALINE 50MG TABLET 50 MG PO (08:28)
[2024-04-15] MEDS: METFORMIN 500MG TABLET 500 MG PO (08:28)
--- NOTE | 2024-04-15 09:45 | HMH.OTEV ---
OT Inpatient Evaluation Rehab OT IP Evaluation Start: 04/14/24 19:40 Freq: ONCE Status: Active Protocol: Document 04/15/24 09:39 [facility] (Rec: 04/15/24 09:45 [facility] [id number]) Rehab OT IP Assessment Subjective History Pt oriented x 3 on arrival. Pt agreeable to engage in therapy evaluation. Family present and supportive. Pt was admitted on 04/14/24 due to a fall resulting in a tibial plateau fx to right leg. History and physical: This is a morbidly obese 23- year-old female, with also PMHx of hypothyroidism; recent bilateral ankle sprain who presented to the emergency department for evaluation of right knee injury. Earlier today, at home, Patient she had to get up and run to prevent her child to keep playing with an electrical cord, she slipped out, falling ground level. In order to avoid landing over her child she tried to twist her body ending landing on her right knee. Patient is hemodynamically stable upon arrival, afebrile. Physical exam is remarkable for tenderness to palpation about the right knee but particularly on the lateral side. No palpable bony deformity. Patient is neurovascularly intact distally however range of motion testing is limited due to the patient's pain. She denies any hip pain or ankle pain. She is neurovascular intact distally. Subjective I just have tingling in my foot. Prior to being in the hospital , pt lived at home with her mother, sisters, and daughter. Pt reports normally she is independent with all ADLS and IADLs. Pt does not use any type of AE during daily activities. She is independent with all functional transfers. Pt also drives. Objective Patient Orientation Person,Place,Birthday Right Upper Extremity Gross ROM WNL Left Upper Extremity Gross ROM WNL Bed Mobility bed mobility-scooting,bed mobility - supine/sit Assist Level Minimal x 1 (25% assist) Transfer Training Sit/Stand Transfer Assist Level Contact Guard/Hand Hold Rehab OT IP prob,goals,plan Problems Date of Evaluation: 04/15/24 OT IP Problems Bed Mobility,Transfers,Balance ,Self care,Safety Rehab Potential Rehab Potential Good Equipment Needs Assistive Devices Rolling / Wheeled Walker, Axillary Crutches Plan OT intervention Plan Bed Mobility,Transfers,Balance ,Self care,Safety,Therapeutic Exercise OT Plan Frequency Daily Duration LOS Discharge Goals Bed Mobility Ability Standby Assistance Sit to Stand Chair Transfer Ability Supervision/Stand by Chair Transfer Ability Independent Chair Transfer Technique Sit to/from Ambulatory Chair Transfer Assistive Devices Rolling Walker,Axillary Crutches Feeding Ability Assist with Tray Set Up Lower Body Dressing Ability Minimal Assistance Upper Body Dressing Ability Standby Assistance Bathing Ability Minimal Assistance Performing Toilet Hygiene Ability Contact Guard Overall Commode/Toilet Transfer Ability Standby Assistance Commode/Toilet Transfer Technique Sit to/from Ambulatory Commode/Toilet Transfer Assistive Grab Bars Devices Decrease in Endurance Yes Discharge Plan OT Discharge Plan Pt will continue to be seen for OT services while at [facility]. Pt can return home with family assistance once she is medically stable per physician . Upon returning home, therapist recommends HH OT services or Outpatient PT when cleared by ortho. Therapist also recommends rolling walker in order to assist with functional transfers. Continued skilled therapy is important in order for patient to improve strength, safety, endurance, ADL independence, and functional transfers to reach PLOF. Eval Complexity Eval Charge Codes 13605 - Moderate Complexity PHYSICIAN CERTIFICATION: I certify the specified therapy services for Mariana Flores are required, authorized, and reviewed every 30 days.
--- NOTE | 2024-04-15 10:49 | HMH.PTEV ---
Physical Therapy Evaluation Rehab PT IP Evaluation Start: 04/14/24 19:40 Freq: ONCE Status: Active Protocol: Document 04/15/24 10:10 [facility] (Rec: 04/15/24 10:48 [facility] [id number]) Subjective/History History History This is the initial for Mariana Flores, a 23 yof that was admitted for a tibial plateau fracture that occurred several days ago. The patient has a PMH that includes but not limited to sciatica, Fecal impaction, cervical paraspinal muscle spasm, constipation, callus of foot, plantar fasciitis, right foot pain, Weakness, local reaction to immunization, strep throat, bilateral otitis media. Patient also has a BMI of 50. Subjective Subjective Patient stated that she lives at home with her mom, her sisters, and her 1 year old daughter. Patient stated that before this incident she was independent with walking, bathing, cooking, etc. Patient stated that she does not use an AD previously to this incident. Patient stated that she has several steps to get into her home. Patient stated that she struggles at this time to move her right foot and sometimes it feels like pins and needles in my foot. New diagnosis of cancer in past 12 No months? Rehab PT IP Eval Objective Appearance Patient Behavior Appropriate,Cooperative Patient Orientation Person,Place,Birthday Difficulty following instructions none Speech Pattern Clear,Appropriate Ambulation Patient Able to Ambulate Yes Ambulation Observation IP General Gait Pattern Observation Decrease Weight Bear (R) Ambulation Distance (feet) 15 Ambulation Assistive Device Rolling Walker Ambulation Ability Contact Guard/Hand Hold Balance Ability to Arise Able, uses arms to help Sitting Balance Steady, safe Standing Balance Steady, wide stance Dynamic Sitting Balance Ability Normal Dynamic Standing Balance Ability Normal Transfers Bed Transfer Ability Minimal x 1 (25% assist) Sit to Stand Bed Transfer Ability Contact Guard/Hand Hold Rehab PT IP prob,goals,plan Problems Date of Evaluation: 04/15/24 PT IP Problems Transfers,Gait,Balance,Safety Rehab Potential Rehab Potential Good Equipment Needs Assistive Devices Rolling / Wheeled Walker Plan PT Intervention Plan Transfers,Gait,Balance,Safety, Therapeutic Exercise PT Plan Frequency Daily Duration LOS Discharge Goals Bed Transfer Ability Independent Sit to Stand Chair Transfer Ability Independent Ambulation Assistive Device Rolling Walker Ambulation Distance (feet) 30 Discharge Plan PT Discharge Plan Patient is most appropriate to discharge to home with home health at this time if patient maintains NWB status of R LE. Skilled therapy required for transfers, gait training with NWB, and balance to return the patient to their PLOF. Eval Complexity Eval Charge Codes 58735 - High Complexity PHYSICIAN CERTIFICATION: I certify the specified therapy services for Mariana Flores are required, authorized, and reviewed every 30 days.
[2024-04-15 11:18] LABS: POC Glucose,Bedside 122 (70-110)
[2024-04-15] MEDS: ACETAMINOPHEN 325MG TAB 650 MG PO (13:27)
--- NOTE | 2024-04-15 14:59 | EXP.ORTH.CON ---
History of Present Illness *Admission Date: 04/14/24 *History of present illness: Earlier today, at home, Patient she had to get up and run to prevent her child to keep playing with an electrical cord, she slipped out, falling ground level. In order to avoid landing over her child she tried to twist her body ending landing on her right knee. Patient is hemodynamically stable upon arrival, afebrile. Physical exam is remarkable for tenderness to palpation about the right knee but particularly on the lateral side. No palpable bony deformity. Ortho consulted for recommendations after she was admitted to the hospital. [facility] Disclaimer: The information contained in this section may have been updated after the patient was seen, as this information can be updated by other users. 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 Sciatica Second trimester Fecal impaction Cervical paraspinal muscle spasm Constipation Callus of foot Plantar fasciitis, right Foot pain Exposure to COVID-19 virus Sinusitis Otitis media Viral syndrome Right hand pain Fall Right wrist sprain URI (upper respiratory infection) Sciatica Low back pain Lumbar radiculopathy Degenerative disc disease, lumbar Low back strain Ankle sprain Hypothyroidism (~04/16/18) Vitamin D deficiency (~04/16/18) Mononucleosis (~04/16/18) Weakness Local reaction to immunization Strep throat Bilateral otitis media Surgical History No pertinent past surgical history Family History Family/Other FHx: mental illness Diabetes Hypertension Thyroid disorder Social History (Updated 04/14/24 @ 20:34 by Kayli Powell RN) Smoking Status: Current every day smoker tobacco type: smokeless tobacco alcohol intake: never substance use type: denies use current occupational status: employed Travel in the last 8 weeks: None household members: family housing: house Meds Home Medications and Allergies Home Medications ?Medication ?Instructions ?Recorded ?Confirmed ?Type levothyroxine 50 mcg tablet 50 mcg PO DAILY hypothyroid #30 03/05/24 04/14/24 Rx tabs metformin 500 mg tablet 500 mg PO DAILY #30 tabs 03/05/24 04/14/24 Rx sertraline 50 mg tablet 50 mg PO DAILY #30 tabs 03/05/24 04/14/24 Rx cholecalciferol (vitamin D3) 50 50 mcg PO DAILY #90 caps 03/07/24 04/14/24 Rx mcg (2,000 unit) capsule oxycodone 5 mg tablet 5 mg PO Q6H PRN pain #10 tabs 04/14/24 Rx New Prescriptions to Start Prescriptions: oxycodone Priyank [place] Allergies Allergy/AdvReac Type Severity Reaction Status Date / Time human papillomavirus Allergy Mild Verified 03/05/24 10:22 vaccine, quadr [From Gardasil (PF)] Penicillins [PENICILLINS] Allergy Unknown I-HIVES Verified 03/05/24 10:22 Ortho Exam (Inpt) Vital signs and Labs for Last 24 Hours: Temp Pulse Resp BP Pulse Ox O2 Del Method 98.5 F 91 H 18 111/63 97 Room Air 04/15/24 08:00 04/15/24 08:00 04/15/24 08:00 04/15/24 08:00 04/15/24 08:00 04/15/24 13:00 Laboratory Results - last 24 hr 04/14/24 15:35: Serum HCG, Qual Negative 04/15/24 06:25: WBC 8.0, RBC 3.82 L, Hgb 11.2 L, Hct 35.5 L, MCV 92.9, MCH 29.4, MCHC 31.6 L, RDW 14.8, Plt Count 272, MPV 7.7, Neut % (Auto) 76.9, Lymph % (Auto) 17.1, Todd % (Auto) 5.2, Eos % (Auto) 0.4, Baso % (Auto) 0.5, Neut # (Auto) 6.1, Lymph # (Auto) 1.4, Todd # (Auto) 0.4, Eos # (Auto) 0.0, Baso # (Auto) 0.0, Sodium 134 L, Potassium 3.8, Chloride 106, Carbon Dioxide 24, Anion Gap 7.8, BUN 9, Creatinine 0.60, Estimated Creat Clear 147, Estimated GFR 124, Est GFR ( Amer) 150, Glucose 117 H, Calcium 8.3 L, Magnesium 1.9, Total Bilirubin 0.8, AST 33, ALT 19, Alkaline Phosphatase 70, Total Protein 6.6, Albumin 3.8, Globulin 2.8, Albumin/Globulin Ratio 1.4 04/15/24 11:11: POC Glucose 122 H I & O for Labs for Last 24 Hours: Intake & Output 04/12/24 04/13/24 04/14/24 04/15/24 23:59 23:59 23:59 23:59 Intake Total 120 / 120 300 / 300 Output Total 0 / 0 Balance 120 / 120 300 / 300 Weight 347 lb 1.6 oz 347 lb 1.6 oz Head: Present normocephalic and atraumatic Comment:: Right knee: knee immobilizer in place. No deformity. Mild knee effusion. Skin intact. Sensation intact. Compartments soft. No pain with passive stretch of toes. Vascular status normal. Results Labs 04/15/24 06:25 04/15/24 06:25 Labs: Abnormal lab results 04/15/24 04/15/24 Range/Units 06:25 11:11 RBC 3.82 L (4.20-5.40) M/mm3 Hgb 11.2 L (12.2-16.2) g/dL Hct 35.5 L (37.0-47.0) % MCHC 31.6 L (31.8-35.4) g/dL Sodium 134 L (136-145) mmol/L Glucose 117 H (74-100) mg/dl POC Glucose 122 H (70-110) Calcium 8.3 L (8.4-10.2) mg/dl H & H 04/15/24 Range/Units 06:25 Hgb 11.2 L (12.2-16.2) g/dL Hct 35.5 L (37.0-47.0) % All other labs normal. Assessment and Plan *Assessment and plan (1) Fracture of fibula, proximal: Status: Acute Qualifiers: Encounter type: initial encounter Fracture morphology: unspecified fracture morphology Fracture type: closed Laterality: right Qualified Code(s): S82.831A - Other fracture of upper and lower end of right fibula, initial encounter for closed fracture Category: Medical Code(s): S82.839A - Other fracture of upper and lower end of unspecified fibula, initial encounter for closed fracture (2) Closed fracture of tibial plateau: Status: Acute Qualifiers: Encounter type: initial encounter Laterality: right Qualified Code(s): S82.141A - Displaced bicondylar fracture of right tibia, initial encounter for closed fracture Category: Medical Code(s): S82.143A - Displaced bicondylar fracture of unspecified tibia, initial encounter for closed fracture Plan Will fit patient for TROM. Remain toe touch weight bearing. Will need outpatient MRI given the mechanism. Return to clinic in 7-10 days.
--- NOTE | 2024-04-15 15:40 | EXP.DC.SUM ---
General Admission date:: 04/14/24 Discharge date: 04/15/24 HPI HPI HPI: Earlier today, at home, Patient she had to get up and run to prevent her child to keep playing with an electrical cord, she slipped out, falling ground level. In order to avoid landing over her child she tried to twist her body ending landing on her right knee. Patient is hemodynamically stable upon arrival, afebrile. Physical exam is remarkable for tenderness to palpation about the right knee but particularly on the lateral side. No palpable bony deformity. Hospital Course Hospital Course Hospital Course: The patient was admitted to the [facility] floor with orthopedic consultation. Imaging, labs and inflammatory markers were assessed. PT and OT evaluations occurred. Orthopedics made a recommendation for nonoperative approach with orthopedic appliance recommendations. She identified effective pain control. She requested to be discharged home to return to the care of her toddler. She understands the importance of following up with her PCP and orthopedic surgery as scheduled. She was prescribed narcotics on discharge and understands not to drive while taking the medication and fall precaution education was provided. Exam Data for Last 24 hours Vital signs and Labs for Last 24 Hours: Temp Pulse Resp BP Pulse Ox O2 Del Method 98.5 F 91 H 18 111/63 97 Room Air 04/15/24 08:00 04/15/24 08:00 04/15/24 08:00 04/15/24 08:00 04/15/24 08:00 04/15/24 15:00 Laboratory Results - last 24 hr 04/14/24 15:35: Serum HCG, Qual Negative 04/15/24 06:25: WBC 8.0, RBC 3.82 L, Hgb 11.2 L, Hct 35.5 L, MCV 92.9, MCH 29.4, MCHC 31.6 L, RDW 14.8, Plt Count 272, MPV 7.7, Neut % (Auto) 76.9, Lymph % (Auto) 17.1, Crawford % (Auto) 5.2, Eos % (Auto) 0.4, Baso % (Auto) 0.5, Neut # (Auto) 6.1, Lymph # (Auto) 1.4, Crawford # (Auto) 0.4, Eos # (Auto) 0.0, Baso # (Auto) 0.0, Sodium 134 L, Potassium 3.8, Chloride 106, Carbon Dioxide 24, Anion Gap 7.8, BUN 9, Creatinine 0.60, Estimated Creat Clear 147, Estimated GFR 124, Est GFR ( Amer) 150, Glucose 117 H, Calcium 8.3 L, Magnesium 1.9, Total Bilirubin 0.8, AST 33, ALT 19, Alkaline Phosphatase 70, Total Protein 6.6, Albumin 3.8, Globulin 2.8, Albumin/Globulin Ratio 1.4 04/15/24 11:11: POC Glucose 122 H I & O for Last 24 hours: Intake & Output 04/12/24 04/13/24 04/14/24 04/15/24 23:59 23:59 23:59 23:59 Intake Total 120 / 120 300 / 300 Output Total 0 / 0 Balance 120 / 120 300 / 300 Weight 157.442 kg 157.442 kg Constitutional Constitutional: no acute distress, morbidly obese and cooperative *Routine HEENT Exam Head: Present normocephalic Eye: Present EOMI and PERRL ENT: Present mucous membranes moist *Routine Neck Exam Neck: Present supple; Absent lymphadenopathy *Routine Respiratory Exam Respiratory: Present CTA bilaterally, normal respiratory effort and symmetric chest movement *Routine Cardiovascular Exam Cardiovascular: Present RRR *Routine Abdominal Exam Abdominal: Present soft and normoactive bowel sounds *Routine Extremities Exam Extremities: Present tenderness Comments: Right lower extremity orthopedic appliance *Routine Skin Exam Skin: Absent rash *Routine Neurological Exam Neurological: Present alert, oriented X3, moving all extremities, vision grossly intact, hearing grossly intact and normal speech; Absent sensory deficit or motor deficit Routine Psychiatric Exam Psychiatric: Present normal affect, normal thought process, cooperative, good insight and good judgment Results Data Completed and Pending Labs on day of discharge: Labs from last 24 hours 04/15/24 04/15/24 04/14/24 11:11 06:25 15:35 WBC 8.0 RBC 3.82 L Hgb 11.2 L Hct 35.5 L MCV 92.9 MCH 29.4 MCHC 31.6 L RDW 14.8 Plt Count 272 MPV 7.7 Neut % (Auto) 76.9 Lymph % (Auto) 17.1 Crawford % (Auto) 5.2 Eos % (Auto) 0.4 Baso % (Auto) 0.5 Neut # (Auto) 6.1 Lymph # (Auto) 1.4 Crawford # (Auto) 0.4 Eos # (Auto) 0.0 Baso # (Auto) 0.0 Sodium 134 L Potassium 3.8 Chloride 106 Carbon Dioxide 24 Anion Gap 7.8 BUN 9 Creatinine 0.60 Estimated Creat Clear 147 Estimated GFR 124 Est GFR ( Amer) 150 Glucose 117 H POC Glucose 122 H Calcium 8.3 L Magnesium 1.9 Total Bilirubin 0.8 AST 33 ALT 19 Alkaline Phosphatase 70 Total Protein 6.6 Albumin 3.8 Globulin 2.8 Albumin/Globulin Ratio 1.4 Serum HCG, Qual Negative DS: Diagnosis Discharge Diagnosis (1) Fracture of fibula, proximal: Status: Acute Code(s): S82.839A - Other fracture of upper and lower end of unspecified fibula, initial encounter for closed fracture Qualifiers: Encounter type: initial encounter Fracture morphology: unspecified fracture morphology Fracture type: closed Laterality: right Qualified Code(s): S82.831A - Other fracture of upper and lower end of right fibula, initial encounter for closed fracture (2) Closed fracture of tibial plateau: Status: Acute Code(s): S82.143A - Displaced bicondylar fracture of unspecified tibia, initial encounter for closed fracture Qualifiers: Encounter type: initial encounter Laterality: right Qualified Code(s): S82.141A - Displaced bicondylar fracture of right tibia, initial encounter for closed fracture (3) Adult hypothyroidism: Status: Acute Code(s): E03.9 - Hypothyroidism, unspecified (4) Obesity, morbid, BMI 50 or higher: Status: Acute Code(s): E66.01 - Morbid (severe) obesity due to excess calories Meds Home Medications and Allergies Home Medications ?Medication ?Instructions ?Recorded ?Confirmed ?Type levothyroxine 50 mcg tablet 50 mcg PO DAILY hypothyroid #30 03/05/24 04/14/24 Rx tabs metformin 500 mg tablet 500 mg PO DAILY #30 tabs 03/05/24 04/14/24 Rx sertraline 50 mg tablet 50 mg PO DAILY #30 tabs 03/05/24 04/14/24 Rx cholecalciferol (vitamin D3) 50 50 mcg PO DAILY #90 caps 03/07/24 04/14/24 Rx mcg (2,000 unit) capsule oxycodone 5 mg tablet 5 mg PO Q6H PRN pain #10 tabs 09/08/24 Rx New Prescriptions to Start Prescriptions: oxycodone Priyank Fulton Allergies Allergy/AdvReac Type Severity Reaction Status Date / Time human papillomavirus Allergy Mild Verified 03/05/24 10:22 vaccine, quadr [From Gardasil (PF)] Penicillins [PENICILLINS] Allergy Unknown I-HIVES Verified 03/05/24 10:22 Discharge Plan Disposition Patient Disposition: Home, Self-Care Condition: Good Follow up Plan Follow up with: Herlinda Piña APRN [Primary Care Provider] - 04/22/24 1:45 pm Prashant Irizarry DO [Staff Physician] - 04/25/24 9:30 am Prescriptions/Medication Reconciliation: New oxycodone 5 mg tablet 5 mg PO Q6H PRN (Reason: pain) Qty: 10 0RF Continued levothyroxine 50 mcg tablet 50 mcg PO DAILY Qty: 30 2RF sertraline 50 mg tablet 50 mg PO DAILY Qty: 30 2RF metformin 500 mg tablet 500 mg PO DAILY Qty: 30 2RF cholecalciferol (vitamin D3) 50 mcg (2,000 unit) capsule 50 mcg PO DAILY Qty: 90 0RF Other Ambulatory Orders: Home Medical Equipment (Routine) Location: None Selected Ordered By: Roe Jones Problem Reconciliation Problems Reviewed?: Yes Patient Discharge Instructions ACTIVITY: Ambulate as tolerated DIET: advance to your usual diet Patient Instructions: How to Prevent Falls, DI for Tibial Plateau Fracture Print Language: Persian Providers Primary Care Provider: Herlinda Piña Admit Provider: Phani Sarmiento Attending Provider: Phani Sarmiento
--- NOTE | 2024-04-16 13:50 | CARE MANAGER ---
Called and spoke with patient regarding recent discharge. Patient stated that she is doing ok but has been having muscle cramps in her calf and has reached out to Dr. Irizarry's office for muscle relaxers. She had no other concerns at time of call.
== END 2024-04-15 16:36 | disposition home or self-care (01) ==
LOC: ER 19:41 → 2ND 19:43
PROVIDERS: Emergency Medicine; Nurse Practitioner Family; Admitting Provider Internal Medicine; Emergency Provider Emergency Medicine; PCP Family Medicine; Visit Provider Internal Medicine
DX: S82.831A Other fracture of upper and lower end of right fibula, initial encounter for closed fracture (principal); S82.141A Displaced bicondylar fracture of right tibia, initial encounter for closed fracture; W01.0XXA Fall on same level from slipping, tripping and stumbling without subsequent striking against object, initial encounter; E03.9 Hypothyroidism, unspecified; Z72.0 Tobacco use; E66.01 Morbid (severe) obesity due to excess calories; Z68.43 Body mass index [BMI] 50.0-59.9, adult; Z79.899 Other long term (current) drug therapy; F32.A Depression, unspecified
CPT/HCPCS: 36415; 73552; 73562; 73590; 73700; 80053; 82962; 83735; 84703; 85025; 97163; 97166; 97760; 99285; G0378; J1170; J1650; J1885; J2270; J3360

== ENCOUNTER 2024-04-25 09:11 | Outpatient (CLI) | payer SELFPAY ==
--- NOTE | 2024-04-25 09:16 | XR_ITS ---
FINAL REPORT CLINICAL HISTORY: right tib fib fx FINDINGS: RIGHT TIBIA AND FIBULA There is an avulsion fracture of the proximal fibula with fracture fragment measuring 1.5 cm. Known fracture of the tibial plateau is not well-visualized on this exam. The joint spaces are intact. There is no soft tissue abnormality. IMPRESSION: Avulsion fracture of the proximal fibula. Known fracture of the tibial plateau not well-visualized on this exam. Reviewed, Interpreted and Dictated by Eliceo Hussein MD Transcribed by Yanira Sharma Authenticated and [facility]
== END 2024-04-25 23:59 | disposition home or self-care (01) ==
LOC: RAD 09:13
PROVIDERS: PCP Family Medicine; Visit Provider Orthopaedic Surgery
DX: M79.661 Pain in right lower leg (principal); S82.831A Other fracture of upper and lower end of right fibula, initial encounter for closed fracture
CPT/HCPCS: 73590

== ENCOUNTER 2024-05-16 12:40 | Outpatient (CLI) | payer MEDICAID, SELFPAY ==
--- NOTE | 2024-05-16 12:45 | XR_ITS ---
FINAL REPORT CLINICAL HISTORY: right tib fib fx COMPARISON: 04/25/2024 FINDINGS: RIGHT TIBIA FIBULA Again noted is an avulsion fracture of the fibular head, with stable alignment when compared to the prior exam. No other fracture is identified on today's exam. The joint spaces are intact. There is no soft tissue abnormality. IMPRESSION: Avulsion fracture of the fibular head, stable when compared to the prior exam of April 25. Reviewed, Interpreted and Dictated by Carlos Jerome III, MD Transcribed by Anju Lieberman Authenticated and [facility]
== END 2024-05-16 23:59 | disposition home or self-care (01) ==
LOC: RAD 12:41
PROVIDERS: PCP Student in an Organized Health Care Education/Training Program; Visit Provider Physician Assistant Surgical
DX: M79.661 Pain in right lower leg (principal); S82.831A Other fracture of upper and lower end of right fibula, initial encounter for closed fracture
CPT/HCPCS: 73590

== ENCOUNTER 2024-06-13 12:47 | Outpatient (CLI) | payer MEDICAID, SELFPAY ==
--- NOTE | 2024-06-13 12:51 | XR_ITS ---
FINAL REPORT CLINICAL HISTORY: fracture, apr 8 COMPARISON: 05/16/2024 FINDINGS: RIGHT TIBIA FIBULA: There is a right fibular head fracture, which appears similar to the exam of May 16. No significant callus formation is identified. The joint spaces are otherwise intact. There is no soft tissue abnormality. IMPRESSION: Right fibular head fracture, without significant callus formation, similar to the prior exam of May 16. Authenticated and [facility]
== END 2024-06-13 23:59 | disposition home or self-care (01) ==
PROVIDERS: PCP Student in an Organized Health Care Education/Training Program; Visit Provider Physician Assistant Surgical
DX: S82.831A Other fracture of upper and lower end of right fibula, initial encounter for closed fracture (principal)
CPT/HCPCS: 73590

== ENCOUNTER 2024-06-25 15:07 | Outpatient (CLI) | payer MEDICAID, SELFPAY ==
--- NOTE | 2024-06-25 15:07 | MR_ITS ---
PROCEDURE INFORMATION: Exam: MR Right Lower Extremity Joint Without Contrast, Knee Exam date and time: 06/25/2024 3:09 PM Age: 23 years old Clinical indication: Pain; Knee; Right; Additional info: Fracture TECHNIQUE: Imaging protocol: Magnetic resonance imaging of the right lower extremity joint without contrast. Exam focused on the knee. COMPARISON: CT KNEE RT WO CON 04/14/2024 4:45 PM FINDINGS: Bones/joints: A small to moderate sized patellofemoral joint effusion is visualized. There is cartilage thinning and heterogeneous signal intensity at the medial facet of the patella. Marrow edema is visualized involving the posterolateral tibial plateau, with linear T1 hypointense nondisplaced fractures. Marrow edema is visualized involving the fibular head. There is a mineralized loose body superior to the fibula, consistent with the fracture fragment visualized on the prior study. There is a band of T2 hyperintensity involving the tibial spines, with fracture visualized on the prior CT. Additional marrow edema is seen of the anterior tibial plateau, with fracture again visualized. Bursae: A small amount of fluid is visualized within the deep infrapatellar bursa. Medial meniscus: Myxoid degeneration of the medial meniscus. A linear focus of increased PD signal intensity is identified involving the posterior root of the medial meniscus, with meniscal tear. Lateral meniscus: There is increased PD signal intensity within the anterior horn and root of the lateral meniscus, with meniscal tear. Significant fluid is visualized inferior to the posterior horn of the lateral meniscus measuring 5 mm, consistent with a floating meniscus/meniscal avulsion. Tear is suggested of the body of the lateral meniscus extending to the inferior articulating surface. Anterior cruciate ligament: There is separation of the bands of the ACL. There is increased PD signal intensity between the spans, and partial tear cannot be excluded. Edema is seen adjacent to the collateral ligaments. Posterior cruciate ligament: PD hyperintensity is visualized involving the proximal PCL, consistent with partial tear. Medial capsule and supporting structures: Unremarkable. No tear. Lateral capsule and supporting structures: Mild edema is identified adjacent to the iliotibial band. No visualized tear of the lateral collateral ligament. The lateral collateral ligament attach is to an avulsed fracture fragment. Extensor mechanism of knee: There is heterogeneous signal intensity on PD of the patellar tendon, consistent with tendinosis. Mild tendinosis is visualized of the distal quadriceps tendon. Soft tissues: Soft tissue swelling is seen anteriorly. Mild edema within Hoffa's fat inferiorly. IMPRESSION: 1. Marrow edema is visualized involving the posterolateral tibial plateau, with nondisplaced fractures. Marrow edema is visualized involving the fibular head. There is a mineralized loose body superior to the fibula, consistent with the fracture fragment visualized on the prior study. The lateral collateral ligament attaches to this avulsed fragment. 2. There is a band of T2 hyperintensity involving the tibial spines, with fracture visualized on the prior CT. Additional marrow edema is seen of the anterior tibial plateau, with fracture again visualized. 3. Medial and lateral meniscal tears. Significant fluid is visualized inferior to the posterior horn of the lateral meniscus, consistent with a floating meniscus/meniscal avulsion. 4. Partial PCL tear. 5. A small to moderate sized patellofemoral joint effusion is visualized. 6. There is separation of the bands of the ACL. There is increased PD signal intensity between the bands, and partial tear cannot be excluded. 7. Additional findings described above.
== END 2024-06-25 23:59 | disposition home or self-care (01) ==
LOC: RAD 15:07
PROVIDERS: PCP Student in an Organized Health Care Education/Training Program; Visit Provider Physician Assistant Surgical
DX: M25.561 Pain in right knee (principal); S82.831A Other fracture of upper and lower end of right fibula, initial encounter for closed fracture
CPT/HCPCS: 73721

== ENCOUNTER 2024-08-26 08:02 | Day surgery (SDC) | payer MEDICAID, SELFPAY ==
--- NOTE | 2024-08-23 13:21 | SUR.PREOP ---
1321: Attempted preop phone call. VMailbox is full.
[2024-08-26] VITALS (10 sets, daily range): BP systolic 133–166; BP diastolic 44–91; PULSE 70–101; RESP 16–22; TEMP 36.2–38; O2SAT 94–100; BMI 51.7
[2024-08-26 08:32] LABS: Urine Pregnancy, HCG Qual. Negative (Negative)
[2024-08-26] MEDS: LACTATED RINGERS 1000ML 1,000 ML 100 ML IV (08:37)
[2024-08-26] MEDS: CLINDAMYCIN PHOSPHATE/D5W 900 MG/50 ML PIGGYBACK 200 MG (09:29)
[2024-08-26] MEDS: BUPIVACAINE 0.25% 30ML VIAL 75 MG (10:01)
[2024-08-26] MEDS: RINGERS SOLUTION,LACTATED 6,000 ML 1000 ML IR (10:02)
--- NOTE | 2024-08-26 10:42 | P.PNANES_ITS ---
[facility] Disclaimer: The information contained in this section may have been updated after the patient was seen, as this information can be updated by other users. 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 (Updated 08/26/24 @ 08:36 by Rox Wise RN) History of COVID-19 Anxiety Sciatica Second trimester Fecal impaction Cervical paraspinal muscle spasm Constipation Callus of foot Plantar fasciitis, right Foot pain Exposure to COVID-19 virus Sinusitis Otitis media Viral syndrome Right hand pain Fall Right wrist sprain URI (upper respiratory infection) Sciatica Low back pain Lumbar radiculopathy Degenerative disc disease, lumbar Low back strain Ankle sprain Hypothyroidism (~04/16/18) Vitamin D deficiency (~04/16/18) Mononucleosis (~04/16/18) Weakness Local reaction to immunization Strep throat Bilateral otitis media Surgical History (Updated 08/26/24 @ 08:36 by Rox Wise RN) [place] teeth removed Previous section Family History Family/Other FHx: mental illness Diabetes Hypertension Thyroid disorder Social History (Updated 08/26/24 @ 08:36 by Rox Wise RN) Smoking Status: Current every day smoker tobacco type: smokeless tobacco alcohol intake: never substance use type: denies use current occupational status: unemployed Travel in the last 8 weeks: None household members: family housing: house Have you lived/traveled outside [place] in past 30 days?: No Contact w/someone who lives/traveled outside US past 30 days?: No Exposure to someone with infectious disease in past 14 days?: No Do you have a fever (greater than 100.4 F or 38 C)?: No Have you tested positive for COVID-19: Yes Exposed to someone with COVID-19 in past 14 days?: No Do you have a sore throat?: No Do you have a cough?: No Do you have any weakness?: No Are you experiencing any nausea/vomitting?: No Do you have any diarrhea?: No Are you experiencing any unusual bleeding?: No Do you have any muscle aches/pain?: No Do you have any abdominal pain?: No Are you experiencing loss of taste or smell?: No [facility] Anesthesia Checklist Patient Identification Patient Identification: Arm Band and Family Structural Data Admitted From: Home Planned Operative Procedure/s: ATS Right Knee. Consent for Planned Operative Procedure(s) Verified: Yes Verified Documents: Surgical Consent and History and Physical NPO Status Verified Time NPO: 00:00 Additional verifications Patient : No Anesthesia Reactions: No Hx Blood Transfusions: No Blood Transfusion Reaction: No Cephalosporin Allergy: Yes Previous Colonoscopy: No Airway Assessment Mallampati Score:: Class II C-Spine Mobility Assessed: Yes TMJ Mobility Assessed: Yes Neurological Assessment Level of Consciousness: Awake, Alert, Appropriate and Follows Commands Hx Seizures: No Numbness or tingling in extremities: No Anesthesia Plan Anesthesia Risk discussed: Yes ASA Class: III Anesthesia Type: General
--- NOTE | 2024-08-26 10:43 | P.PNANES_ITS ---
[facility] Anesthesia Record Part I Anesthesia Record I Intake, IV Amount: 700 Hydration: Adequate Estimated blood loss (mL): 15 Urine output (mL): 0 Blood Products used (#): none Blood Pressure: 149/78 SaO2: 99 Pulse Rate: 101 Airway Patency: Patent Respiratory Rate: 22 Temperature: 97.1 F Patient is:: Drowsy and Stable
[2024-08-26] MEDS: MORPHINE 2MG/ML SYRINGE 1 MG IV ×2 (10:45→11:00)
--- NOTE | 2024-08-26 10:47 | EXP.OP.NOTE ---
Date of procedure: 08/26/24 Pre-op Diagnosis:: Right knee medial lateral meniscus tears Right knee partial ACL tear Post-op Diagnosis:: Right knee tear anterior horn body medial meniscus Right knee healed lateral meniscus tear Right knee partial ACL tear anterior bundle Procedure performed:: Right knee arthroscopy partial medial meniscectomy Surgeon:: Prashant Irizarry DO Tunnel Elastic Operator Chainstitch(s):: Ludwig [employer] OBJECTS DEVELOPER:: Chi Turcios Anesthesia: GETA Estimated blood loss (mL): 0 Operative findings:: Evidence of previous meniscal tear lateral meniscus no bucket-handle tear no displaced tear scarring of the posterior horn lateral meniscus Evidence of body anterior horn tearing medial meniscus Partial ACL tear anterior bundle Operative note:: Patient notified preoperatively. Right knee marked with yes and my initials. Transferred operative suite. Placed upon operating bed. General anesthesia was administered and airway secured. Right lower extremity was then prepped and draped normal sterile fashion. Once prepped and draped final operative timeout performed to identify proper patient procedure and extremity. Everyone involved the case. There is no counter indications to beginning. Did receive preoperative antibiotics. Marking pen was used to lukas bony landmarks in the and standard portal sites. Esmarch was used to exsanguinate extremity pneumatic tourniquet inflated to 300 mmHg. Skin knife was used incise through skin and the standard anterior lateral portal. Blunt with trocar was placed in the patellofemoral joint exchange with a camera. Within the patellofemoral joint I swept directly into the anterior medial joint line where the anterior medial portal was made under direct visualization with the help of an 18-gauge spinal needle. This was then switched with a probe. There was a tear of the anterior horn body of the medial meniscus using combination of straight biter sucker shaver partial medial meniscectomy was performed stable rim. The posterior horn of the medial meniscus was probed and stable there was no full-thickness cartilage lesion of the medial femoral condyle. Tensions brought the intercondylar notch within the intercondylar notch the ACL was seen there was some tearing of the anterior bundle of the ACL from the femoral attachment nonfull-thickness tear. Tendons brought to the lateral joint line within the lateral joint line there is no bucket-handle tear or displaced large tear of the lateral meniscus. There was evidence of previous tearing at the meniscal capsular junction on the posterior aspect of the lateral meniscus however was scarred in place and not displaced. The knee was ranged there was no unstable pinching of the lateral meniscus tissue. Attention is brought to the medial lateral gutters no pathology was seen here back in the patellofemoral joint were patella did track within the trochlea. There is no full-thickness cartilage lesions. There was evidence of mild fraying but no full-thickness cartilage lesion on the lateral femoral condyle. Cameras removed the joint was drained local anesthesia filtrated the portal sites. Skin closed with nylon stitch sterile dressing placed. Patient waken anesthesia taken recovery stable condition. Condition: stable Disposition: PACU Complications:: None apparent
--- NOTE | 2024-08-27 08:21 | P.PNANES_ITS ---
[facility] Anesthesia Record Part II Anesthesia Record Part II Discharge Time: 11:06 Destination: Surgical Day Care (OP Surgery) PACU nurse assessment reviewed?: Yes Patient Condition:: Good Anesthesia Complications:: None Swallowing reflex intact?: Yes Airway Patency: Patent Cyanosis?: No Blood Pressure: 148/91 SaO2: 98 Respiratory Rate: 18 Pulse Rate: 87 Temperature: 98 F Mental Status: Alert & Oriented Pain level:: 2 Nausea and/or vomitting:: None Intake, IV Amount: 0 Hydration: Adequate
[2024-08-27 08:22] VITALS: BP 148/91; PULSE 87; RESP 18; TEMP 36.6; O2SAT 98
== END 2024-08-26 11:34 | disposition home or self-care (01) ==
PROVIDERS: PCP Family Medicine; Visit Provider Orthopaedic Surgery
PROC: (CPT 29870; principal; 2024-08-26 09:30)
DX: S83.241A Other tear of medial meniscus, current injury, right knee, initial encounter (principal); S83.281A Other tear of lateral meniscus, current injury, right knee, initial encounter; S83.511A Sprain of anterior cruciate ligament of right knee, initial encounter
CPT/HCPCS: 29881; 81025; 96374; J0736; J1100; J2250; J2270; J2405; J3010; J7120

== ENCOUNTER 2024-09-30 08:00 | Outpatient (RCR) | payer MEDICAID, SELFPAY ==
--- NOTE | 2024-09-12 15:27 | HMH.PTOPEV ---
PT Outpatient Evaluation Rehab PT Outpatient Evaluation Start: 09/12/24 09:13 Freq: Status: Active Protocol: Document 09/12/24 09:13 ELMER (Rec: 09/12/24 15:25 ELMER [id number]) E-signed By Sheri Tavarez, PT Outpatient Therapy Subjective History Subjective History Pt is a 23 y/o female who presents to PT s/p R knee arthroscopy for partial medial meniscectomy performed on without complications. Pt reports initial injury of falling on 04/14/24 resulting in a R tibial plateau fracture, fibular head fracture, torn ACL, PCL, medial and lateral meniscus and drop foot. Pt reports the surgeon said there was a partial tear of her ACL and scar tissue over the PCL and lateral meniscus tear. Pt reports she was NWB for ~4 months and is now WBAT. Pt reports she continues to use bilateral axillary crutches for all ambulation although has been practicing household ambulation without an AD for 10-15 minutes a day. Pt states she has to limp and her R knee feels unstable and like it will buckle without use of crutches. Pt reports gradual improvement in drop foot with initial wear of an AFO; however, states she continues to have intermittent sharp, shooting pain of the R lateral leg to her foot and numbness of the R lateral calf. Pt also reports noted ankle stiffness and difficulty lifting her right foot. Pt also reports noted edema from the R knee to the ankle that is worse at the end of the day and worsens nerve pain. Pt states she does take Gabapentin at night time for this and is icing and elevating her knee often. Pt reports she is unable to stand >10 minutes so she has to sit to shower and she has difficulty stepping into her high bathtub. Pt reports she has 3 steps with HR to enter her home and is traversing them well with her crutches without issues. Pt reports she has a 1.5 y/o daughter and is unable to care for her without assistance. 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: Hypothyroidism Ankle girth: Figure 8- 62.5 cm New diagnosis of cancer in past 12 No months? Chief Complaint Pain,Stiff,Swelling,Weakness Symptom Type Ache,Throb,Sharp,Numbness, Tingling,Shooting Symptoms Relieved By Rest/Positioning,Ice,OTC Meds Symptoms Aggravated By Standing,Physical Activity, Twisting,Walking Symptom Description Constant but Variable Level of pain today (0-10) 4 Pain scale - at its best (0-10) 2 Pain scale - at its worst (0-10) 8 Hip/Knee Eval Gait Observation General Gait Pattern Observation Antalgic Gait,Decrease Weight Bear (R) Assistive Device Assistive Devices Axillary Crutches Palpation Tenderness right Knee Palpation Finding Tenderness Knee Palpation Overall Comment medial joint line, fibular head, peroneal mm MMT Hip Abduction Strength Grade 4- Good- Hip Adduction Strength Grade 4- Good- Hip Extension Strength Grade 4- Good- Knee Extension Strength Grade 4 Good Knee Flexion Strength Grade 4 Good ROM left Knee Extension Active Range of Motion ( -5 degrees) Knee Flexion Active Range of Motion ( 114 degrees) right Knee Extension Active Range of Motion ( -3 degrees) Knee Flexion Active Range of Motion ( 90 degrees) Knee Flexion Passive Range of Motion ( 110 degrees) Effusion joint effusion knee exam standard right Mid - Patellar Circumerential Measure ( 55 cm) Ankle/Foot Eval ROM left Ankle/Foot Dorsiflexion w/Knee Extended 10 Active Range Motion (degrees) Ankle/Foot Eversion Active Range of 20 Motion (degrees) right Ankle/Foot Dorsiflexion w/Knee Extended 5 Active Range Motion (degrees) Ankle/Foot Plantar Flexion Active Range 40 of Motion (degrees) Ankle/Foot Eversion Active Range of 12 Motion (degrees) Ankle/Foot Inversion Active Range of 35 Motion (degrees) MMT Ankle Dorsiflexion Strength Grade 3+ Fair+ Ankle Plantarflexion Strength Grade 4- Good- Foot Eversion Strength Grade 4 Good Foot Inversion Strength Grade 5 Normal Lower Extremity Functional Index Activities Today, do you or would you have any difficulty at all with: a.Any of your usual work, housework or Quite a bit of difficulty school activities b. Your usual hobbies, recreational or Quite a bit of difficulty sporting activities c. Getting into or out of the bath Quite a bit of difficulty d. Walking between rooms Quite a bit of difficulty e. Putting on your shoes or socks A little bit of difficulty f. Squatting Extreme difficulty or unable to perform activity g. Lifting an object, like a bag of Moderate difficulty groceries from the floor h. Performing light activities around Quite a bit of difficulty your home i. Performing heavy activities around Extreme difficulty or unable your home to perform activity j. Getting into or out of a car A little bit of difficulty k. Walking 2 blocks Extreme difficulty or unable to perform activity l. Walking a mile Extreme difficulty or unable to perform activity m. Going up or down 10 stairs (about 1 Moderate difficulty flight of stairs) n. Standing for 1 hour Extreme difficulty or unable to perform activity o. Sitting for 1 hour No difficulty p. Running on even ground Quite a bit of difficulty q. Running on uneven ground Extreme difficulty or unable to perform activity r. Making sharp turns while running fast Extreme difficulty or unable to perform activity s. Hopping A little bit of difficulty t. Rolling over in bed No difficulty LEFI Score Lower Extremity Functional Index Score 27 Outpatient Therapy Assessment Impairments Problems/Impairmments Palpation Tenderness,Impaired Range of Motion,Impaired Strength,Impaired Endurance, Impaired Transfers,Impaired Gait Pattern,Impaired Walking, Impaired Standing,Impaired Lifting,Impaired Dressing, Impaired Shower/Bathing, Impaired Household Care, Impaired Stair Climbing, Impaired Incline Stepping, Impaired Stepping on Uneven Surface,Impaired Squatting, Impaired Recreational Activities,Impaired Running, Impaired Jumping,Increased Edema,Lymphedema Present, Subjective C/O Pain,Impaired Self Care/Self Management Prognosis Rehab Potential Good Clinical Impression Consistent with Diagnosis Yes Short Term Goals Number of Weeks 3 Increase Range of Motion Yes: Improve R knee flexion AROM to at least 100 Increase Strength Yes: Improve R ankle DF MMT to at least 4-/5 grossly to assist with function Improve Gait Pattern with Assistive Yes: demonstrate proper gait Device mechanics with LRD to decrease fall risk Increase Ability to Stand Yes: >10' to assist with independent showering Improve Ability to Shower/Bathe Self Yes: report ability to transfer in/out of bathtub I to decrease fall risk Improve Ability to Squat Yes: demonstrate proper mechanics with BW squat to assist with ADLs Improve LEFI Score Yes: Improve score to at least 37/80 to improve overall QOL Decrease Subjective C/O Pain Yes: Improve pain at worst to 6/10 to improve overall QOL Improve Self Care/Self Management Yes Patient to be Ind w/ HEP Yes Equipment Operation Instructor Goals Number of Weeks 6 Increase Range of Motion Yes: Improve R knee AROM flex to at least 110-115, R ankle DF to 10 Increase Strength Yes: Improve RLE MMT to 4+/5 grossly to assist with function Improve Gait Pattern without Assistive Yes: demonstrate proper gait Device mechanics without AD to assist with return to PLOF Restore Ability to Lift Objects to Waist Yes: 30# with proper mechanics Level to assist with caregiver duties Improve LEFI Score Yes: Improve score to at least 50/80 to improve overall QOL Decrease Edema Yes Decrease Subjective C/O Pain Yes: Improve pain at worst to 4/10 to improve overall QOL Outpatient Therapy Plan of Care Treatment Plan May Include Therapeutic Exercise Including Home Yes Exercise Program Manual Therapy Techniques Yes Neuromuscular Re-education Yes Therapeutic Activities to Return to Yes Previous Functional/Work Level Gait Training Yes ADL/Self Care Education Yes Dry Needling Yes Thermal Modalities Yes Electrical Stimulation Yes Ultrasound/Phonophoresis Yes Iontophoresis Yes Orthotics/Bracing/Splinting Yes Vasopneumatic Compression Pump Yes Massage Yes Manual Lymphatic Drainage Yes Wound Care Yes Eval/Re-Eval Yes Frequency Times per week 2-3 Duration Number of Weeks 6 Addendums This patient is a candidate for social No or vocational rehab? Patient/Guardian verbally acknowledges Yes understanding of treatment program and consents to further treatment? Patient/Guardian verbally acknowledges Yes understanding of diagnosis, prognosis and goals for treatment? Eval Complexity PT Charges 87488 - Low Complexity Shoulder/Elbow Eval Shoulder Objective Measurements Elbow Objective Measurements PHYSICIAN CERTIFICATION: I certify the specified therapy services for Mariana Flores are required, authorized, and reviewed every 30 days.
== END 2024-09-30 23:59 | disposition home or self-care (01) ==
LOC: PT 08:00
PROVIDERS: PCP Family Medicine; Visit Provider Orthopaedic Surgery
DX: Z98.890 Other specified postprocedural states (principal); S83.271A Complex tear of lateral meniscus, current injury, right knee, initial encounter; S83.231A Complex tear of medial meniscus, current injury, right knee, initial encounter; M21.379 Foot drop, unspecified foot
CPT/HCPCS: 97014; 97016; 97035; 97110; 97163; 97530; G0283

== ENCOUNTER 2024-10-01 11:42 | Outpatient (CLI) | payer MEDICAID, SELFPAY ==
--- NOTE | 2024-10-01 11:44 | XR_ITS ---
FINAL REPORT CLINICAL HISTORY: Rt Knee Pain COMPARISON: 04/14/2024 FINDINGS: RIGHT KNEE Three views of the right knee were obtained. There is no acute fracture or dislocation. The joint spaces appear normal. There are changes of osteopenia. There is no evidence of joint effusion. There is an old fibular head that is similar to prior exam. There are calcifications along the tibial spines which could represent old avulsion injury. No acute soft tissue abnormality is seen. IMPRESSION: Stable appearance fibular head fracture. Calcifications along the tibial spine could represent an old avulsion injury. No acute findings. Reviewed, Interpreted and Dictated by Bhumi Wood MD Transcribed by Kelly Valerio Authenticated and [facility]
== END 2024-10-01 23:59 | disposition home or self-care (01) ==
PROVIDERS: PCP Family Medicine; Visit Provider Orthopaedic Surgery
DX: M25.561 Pain in right knee (principal); Z98.890 Other specified postprocedural states
CPT/HCPCS: 73562

== ENCOUNTER 2024-10-22 09:40 | Outpatient (RCR) | payer MEDICAID, SELFPAY | END 2024-10-22 23:59 | disposition home or self-care (01) | LOC: PT 09:40 | PROVIDERS: Visit Provider Orthopaedic Surgery | DX: Z98.890 Other specified postprocedural states (principal); S83.271D Complex tear of lateral meniscus, current injury, right knee, subsequent encounter; S83.231D Complex tear of medial meniscus, current injury, right knee, subsequent encounter | CPT/HCPCS: 97760 ==

== ENCOUNTER 2024-11-26 11:07 | Outpatient (RCR) | payer MEDICAID, SELFPAY ==
--- NOTE | 2024-11-26 13:36 | HMH.PTOPEV ---
PT Outpatient Evaluation Rehab PT Outpatient Evaluation Start: 11/26/24 11:12 Freq: Status: Active Protocol: Document 11/26/24 11:14 ELMER (Rec: 11/26/24 13:36 ELMER [id number]) E-signed By Sheri Tavarez, PT Outpatient Therapy Subjective History Subjective History Pt is a 23 y/o female who presents to PT s/p R knee arthroscopy for partial medial meniscectomy performed on without complications. Pt reports initial injury of falling on 04/14/24 resulting in a R tibial plateau fracture, fibular head fracture, torn ACL, PCL, medial and lateral meniscus and drop foot. Pt reports the surgeon said there was a partial tear of her ACL and scar tissue over the PCL and lateral meniscus tear. Pt with most recent R knee radiograph on 10/01/24 with impression of Stable appearance fibular head fracture. Calcifications along the tibial spine could represent an old avulsion injury. No acute findings. Pt had initial bout of PT 2 months ago but fell at home resulting in increased pain so the orthopedic doctor put PT on hold until pain improved. Pt reports her R knee continues to buckle when she puts all her weight on the RLE . Pt states she was given a knee brace ~1 month ago but states it doesn't fit well anymore so she is unable to wear it. Pt reports she started ambulating without an AD on Monday, denies recent falls. Pt reports she does use a SPC when she first wakes up in the morning. Pt reports she is now able to dorsiflex her R ankle a little more, denies tripping due to this or required wear of an AFO. Pt reports fear of falling due to R knee instability and reports continued R medial knee pain and difficulty with prolonged standing (>20 minutes), prolonged walking, stepping in/out of her bathtub , ascending stairs leading with the RLE, lifting her 2 y/ o daughter, and walking on uneven ground such as the hill at her house. Pt reports noted swelling of the RLE especially her ankle with increased activity mostly towards the end of the day. Pt reports bilateral ankle pain and sense of instability when swelling occurs as well. Pt reports she returns to the orthopedic surgeon on 12/02/24 for her next follow-up visit. 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: Hypothyroidism, Vitamin D Deficiency Edema: R figure 8- 59cm New diagnosis of cancer in past 12 No months? Chief Complaint Pain,Swelling,Gives out/ Unstable,Weakness Symptom Type Ache,Dull Symptoms Relieved By Rest/Positioning,Ice,OTC Meds, Elevation Symptoms Aggravated By Standing,Physical Activity, Twisting,Walking,Lifting Current Functional Limitations Lifting,Housework,Standing, Squatting,Recreation Activity, Walking,Stairs,Balance Symptom Description Constant but Variable Level of pain today (0-10) 5 Pain scale - at its best (0-10) 2 Pain scale - at its worst (0-10) 7 Hip/Knee Eval Gait Observation General Gait Pattern Observation Antalgic Gait,Decrease Weight Bear (R) Assistive Device Assistive Devices None / NA Palpation Tenderness right Knee Palpation Finding Tenderness Knee Palpation Overall Comment 2/4 TTP of MCL, LCL, anterior patella MMT Hip Flexion Strength Grade 4- Good- Hip Abduction Strength Grade 4- Good- Hip Adduction Strength Grade 4- Good- Hip Extension Strength Grade 4- Good- Knee Extension Strength Grade 4- Good- Knee Flexion Strength Grade 4- Good- ROM Knee Extension Active Range of Motion ( -5 degrees) Knee Flexion Active Range of Motion ( 110 degrees) Effusion joint effusion knee exam standard right Mid - Patellar Circumerential Measure ( 57 cm) Ankle/Foot Eval ROM right Ankle/Foot Dorsiflexion w/Knee Extended 5 Active Range Motion (degrees) Ankle/Foot Plantar Flexion Active Range WNL of Motion (degrees) Ankle/Foot Eversion Active Range of WNL Motion (degrees) Ankle/Foot Inversion Active Range of WNL Motion (degrees) Lower Extremity Functional Index Activities Today, do you or would you have any difficulty at all with: a.Any of your usual work, housework or Moderate difficulty school activities b. Your usual hobbies, recreational or A little bit of difficulty sporting activities c. Getting into or out of the bath A little bit of difficulty d. Walking between rooms Moderate difficulty e. Putting on your shoes or socks No difficulty f. Squatting Extreme difficulty or unable to perform activity g. Lifting an object, like a bag of A little bit of difficulty groceries from the floor h. Performing light activities around Moderate difficulty your home i. Performing heavy activities around Extreme difficulty or unable your home to perform activity j. Getting into or out of a car No difficulty k. Walking 2 blocks Extreme difficulty or unable to perform activity l. Walking a mile Extreme difficulty or unable to perform activity m. Going up or down 10 stairs (about 1 Moderate difficulty flight of stairs) n. Standing for 1 hour Quite a bit of difficulty o. Sitting for 1 hour No difficulty p. Running on even ground Extreme difficulty or unable to perform activity q. Running on uneven ground Extreme difficulty or unable to perform activity r. Making sharp turns while running fast Extreme difficulty or unable to perform activity s. Hopping Moderate difficulty t. Rolling over in bed No difficulty LEFI Score Lower Extremity Functional Index Score 36 Outpatient Therapy Assessment Impairments Problems/Impairmments Palpation Tenderness,Impaired Range of Motion,Impaired Strength,Impaired Transfers, Impaired Gait Pattern,Impaired Walking,Impaired Standing, Impaired Lifting,Impaired Shower/Bathing,Impaired Household Care,Impaired Stair Climbing,Impaired Incline Stepping,Impaired Stepping on Uneven Surface,Impaired Squatting,Impaired Recreational Activities, Impaired Running,Impaired Jumping,Impaired Balance, Increased Edema,Subjective C/O Pain,Impaired Self Care/Self Management Prognosis Rehab Potential Good Clinical Impression Consistent with Diagnosis Yes Short Term Goals Number of Weeks 3 Increase Strength Yes: Improve RLE MMT to 4/5 grossly to assist with function Improve LEFI Score Yes: Improve score to at least 36/80 to improve overall QOL Decrease Subjective C/O Pain Yes: Improve pain at worst to 5/10 to improve overall QOL Rubbish Collector Goals Number of Weeks 6 Increase Range of Motion Yes: Improve R knee AROMflex to at least 115 Increase Strength Yes: Improve RLE MMT to 4+/5 grossly to assist with gait/ function Restore Ability to Lift Objects to Waist Yes: report ability to lift Level daughter with RLE pain 5/10 or less Improve Ability to Climb Stairs Yes: 1 flight reciprocally with pain <5/10 to assist with community navigation Improve Balance Yes: R SLS x30 without LOB to decrease fall risk & improve knee stability Improve LEFI Score Yes: Improve score to at least 56/80 to improve overall QOL Decrease Subjective C/O Pain Yes: Improve pain at worst to 5/10 to improve overall QOL Outpatient Therapy Plan of Care Treatment Plan May Include Therapeutic Exercise Including Home Yes Exercise Program Manual Therapy Techniques Yes Neuromuscular Re-education Yes Therapeutic Activities to Return to Yes Previous Functional/Work Level Gait Training Yes ADL/Self Care Education Yes Thermal Modalities Yes Electrical Stimulation Yes Ultrasound/Phonophoresis Yes Iontophoresis Yes Orthotics/Bracing/Splinting Yes Vasopneumatic Compression Pump Yes Massage Yes Eval/Re-Eval Yes Frequency Times per week 2 Duration Number of Weeks 4-6 Addendums This patient is a candidate for social No or vocational rehab? Patient/Guardian verbally acknowledges Yes understanding of treatment program and consents to further treatment? Patient/Guardian verbally acknowledges Yes understanding of diagnosis, prognosis and goals for treatment? Eval Complexity PT Charges 06442 - Low Complexity Shoulder/Elbow Eval Shoulder Objective Measurements Elbow Objective Measurements PHYSICIAN CERTIFICATION: I certify the specified therapy services for Mariana Flores are required, authorized, and reviewed every 30 days.
== END 2024-11-26 23:59 | disposition home or self-care (01) ==
LOC: PT 11:07
PROVIDERS: Visit Provider Orthopaedic Surgery
DX: Z98.890 Other specified postprocedural states (principal); S83.271A Complex tear of lateral meniscus, current injury, right knee, initial encounter; S83.231A Complex tear of medial meniscus, current injury, right knee, initial encounter
CPT/HCPCS: 97163

== ENCOUNTER 2025-03-11 22:40 | Emergency (ER) | payer MEDICAID, SELFPAY ==
--- OUTSIDE RECORDS SUMMARY | 2025-03-11 22:47 | XMS_ITS | Clinical Summary ---
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 Active vitamin (, CLASSIC, vitamin) tablet Take by mouth Daily. Active hydrOXYzine (ATARAX) 25 MG tablet Take 1 tablet by mouth 3 (Three) Times a Day As Needed for Anxiety. 60 tablet 1 02/17/2023 Active ibuprofen (ADVIL,MOTRIN) 600 MG tablet Take 1 tablet by mouth Every 6 (Six) Hours. 60 tablet 03/17/2023 9:29 AM EDT 03/17/2023 Active ferrous sulfate 325 (65 FE) MG tablet Take 1 tablet by mouth Daily With Breakfast. 30 tablet 2 03/17/2023 9:29 AM EDT 03/17/2023 Active labetalol (NORMODYNE) 200 MG tablet Take 0.5 tablets by mouth 2 (Two) Times a Day. 60 tablet 6 03/24/2023 Active Active Problems Problem Noted Date Diagnosed Date 6 weeks follow-up 04/25/2023 Gestational hypertension 03/14/2023 Delivery of by section 2022 Overview (03/14/2023): 03/14/2023-primary section for failure to progress. Baby girl weighing 6 pounds 10 ounces at 37+4 weeks -induced hypertension in third trimeste r 02/17/2023 Overview (02/23/2023): Dx 34 weeks. Biweekly monitoring with BPP then NST. 24 hour urine and labs normal. Obesity (BMI 30-39.9) 12/22/2022 Resolved Problems Problem Noted Date Diagnosed Date Resolved Date 2 weeks follow-up 04/09/2023 04/25/2023 36 weeks gestation of 03/23/2023 04/25/2023 care in third trimester 02/17/2023 03/17/2023 care, second trimester 12/22/2022 02/28/2023 Initial obstetric visit in first trimester 08/25/2022 02/28/2023 Immunizations Immunization Administration Dates Next Due 31-influenza Vac Quardvalent Preservativ 06/03/2019 COVID-19 (MODERNA) 1st,2nd,3 rd Dose Monovalent 11/18/2021 DTaP 5 04/19/2005, 2,09/04/2001,05/30,02/09/2001 HPV Quadrivalent 01/24/2012 Hep A, 2 Dose 03/13/2018,01/24/2012 Hep B, Adolescent or Pediatric 02/21/2006,2001,01/15/2001 Hib (PRP-T) 04/19/2005, 2,05/30/2001,02/09 Hpv9 01/24/2012 IPV 04/19/2005, 2,05/30/2001,02/19 MCV4 Unspecified 01/24/2012 MMR 02/21/2006,05/09/2002 Meningococcal MCV4P (Menactra) 09/25/2018 Pneumococcal Conjugate 13-Va lent (PCV13) 04/19/2005,09/04/2001 Tdap 02/21/2023,01/24/2012 Varicella 03/13/2018,04/08/2011,09/04/2001 Family History 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 Relation Name Comments Breast cancer Neg Hx Colon cancer Neg Hx Ovarian cancer Neg Hx Uterine cancer Neg Hx Social History Tobacco Use Types Packs/Day Years Used Date Smoking Tobacco: Never Tobacco Cessation:Counseling Given: Not Answered Alcohol Use Standard Drinks/Week Comments Never 0 (1 standard drink = 0.6 oz pur e alcohol) AUDIT-C Answer Date Recorded Q1: How often do you have a drink containing alc ohol? Never 03/12/2023 Q2: How many drinks containi ng alcohol do you have on a typical day when you are drinking? 1 or 2 03/12/2023 Q3: How often do you have six or more drinks on one occasion? Never 03/12/2023 Overall Financial Resource Strain (CARDIA) Answe r Date Recorded How hard is it for you to pa y for the very basics like food, housing, medical care, and heating? Not hard at all 03/12/2023 PHQ-2 Answer Date Recorded Retired PHQ-9: Brief Depression Severity Measure Score 0 03/12/2023 Exercise Vital Sign Answer Date Recorde d On average, how many days pe r week do you engage in moderate to strenuous exercise (like a brisk walk)? 4 days 03/12/2023 On average, how many minutes do you engage in exercise at this level? 10 min 03/12/2023 Hunger Vital Sign Answer Date Recorded Within the past 12 months, y ou worried that your food would run out before you got the money to buy more. Never true 03/12/20 23 Within the past 12 months, t he food you bought just didn't last and you didn't have money to get more. Never true 03/12/2023 PRAPARE - Transportation Answer Date Re corded In the past 12 months, has l ack of transportation kept you from medical appointments or from getting medications? No 01/2023 In the past 12 months, has l ack of transportation kept you from meetings, work, or from getting things needed for daily living? No 03/12/2023 [place] Depression Scale Answer Date Recorded Retired [place] Depression Score 4 04/03/2023 Retired EPD Scale: Thought of Harming Self Unrec ognized value 04/03/2023 Abuse Screen Answer Date Recorded Unsafe at Home or Work/School Not on file Feels Threatened by Someone? Not on file 02/2024 Does Anyone Keep You from Co ntacting Others or Doint Things Outside the Home? Not on file 03/13/2024 Physical Sign of Abuse Present Not on file 0 03/13/2024 Housing Stability Answer Date Recorded Current Living Arrangements Not on file 02/2024 Potentially Unsafe Housing Conditions Not on erick e 03/13/2024 Family and Community Support Answer Diallo e Recorded Help with Day-to-Day Activities Not on file 03/13/2024 Lonely or Isolated Not on file 03/13/2024 Employment Answer Date Recorded Do you want help finding or keeping work or a damari b? Not on file 03/13/2024 Disabilities Answer Date Recorded Concentrating, Remembering, or Making Decisions Difficulty Not on file 03/13/2024 Doing Errands Independently Difficulty Not on fi le 03/13/2024 Education Answer Date Recorded Help with school or training? Not on file Preferred Language Not on file 03/13/2024 PHQ-2 Answer Date Recorded Retired PHQ-9: Brief Depression Severity Measure Score 0 03/12/2023 Comments No Sex and Gender Information Value Date Recorded Sex Assigned at Not on file Legal Sex Female 1:42 PM EST Gender Identity Not on file Sexual Orientation Not on file Last Filed Vital Signs Vital Sign Reading Time Taken Comments Blood Pressure 120/70 04/25/2023 12:11 PM EDT Pulse 83 03/24/2023 1:12 PM EDT Temperature 37.1 C (98.8 F) 03/24/2023 1:09 PM EDT Respiratory Rate 18 03/24/2023 1:09 PM EDT Oxygen Saturation 99% 03/24/2023 1:12 PM EDT Inhaled Oxygen Concentration - - Weight 125 kg (275 lb) 04/25/2023 12:11 PM EDT Height 175.3 cm (5' 9 ) 04/25/2023 12:11 PM EDT Body Mass Index 40.61 04/25/2023 12:11 PM EDT Plan of Treatment Health Maintenance Due Date Last Done Comments Annual Gynecologic Pelvic an d Breast Exam 2000 HPV VACCINES (2 - 2-dose series) 07/25/2012 01/24/2012, 01/24/2012 ANNUAL PHYSICAL 08/25/2022 CHLAMYDIA SCREENING 08/25/2023 08/25/2022 COVID-19 Vaccine ( - 2023-2 5 season) 2024 11/18/2021 INFLUENZA VACCINE 05/07/2025 06/03/2019 TDAP/TD VACCINES (3 - Td or Tdap) 02/21/2033 02/21/2023, 01/24/2012 Pneumococcal Vaccine 0-49 Completed 2004, 09/04/2001 HEPATITIS C SCREENING Completed 08/25/2022 MENINGOCOCCAL B VACCINE Aged Out No l onger eligible based on patient's age to complete this topic Medical Devices Implanted Type Area Chief Media Officer Device Identifier Shelf Expiration Date Model / Serial / Lot [employer] Adhs I/O Interceed Abs 3x4in - [id number] Implanted:Qty: 1 on 03/14/2023 by Flora Breen MD at [facility] Implant Abdomen [id number] / / Procedures Procedure Name Priority Date/Time Associated Diagnosis Comments CHLAMYDIA TRACHOMATIS, NEISSERIA GONORRHOEAE, PCR W/ CONFIRMATION Routine 08/25/2022 2:44 PM EST Initial obstetric visit in first trimester OBSTETRIC PANEL Routine 08/25/2022 2:44 PM EST Initial obstetric visit in first trimester from Last 3 Months or Most Recently Relevant to Health Maintenance Results * (ABNORMAL) Obstetric Panel (08/25/2022 2:44 PM EST) Hepatitis B Surface Ag Negative Negative [facility] Hep C Virus Ab <0.1 0.0 - 0.9 s/co ratio [facility] Comment: Negative: < 0.8 Indeterminate: 0.8 - 0.9 Positive: > 0.9 HCV antibody alone does not differentiate between previous resolved infection and active infection. The CDC and current clinical guidelines recommend that a positive HCV antibody result be followed up with an HCV RNA test to support the diagnosis of acute HCV infection. [facility] offers Hepatitis C Virus (HCV) RNA, Diagnosis, RANJAN ([id number]) and Hepatitis C Virus (HCV) Antibody with reflex to Quantitative Real-time PCR ([id number]). RPR Non Reactive Non Reactive [facility] Rubella Antibodies, IgG 1.63 Immune >0.99 index [facility] Comment: Non-immune <0.90 Equivocal 0.90 - 0.99 Immune >0.99 ABO Type O [facility] Rh Factor Positive [facility] Comment: Please note: Prior records for this patient's ABO / Rh type are not available for additional verification. Antibody Screen Negative Negative [facility] WBC 6.2 3.4 - 10.8 x10E3/uL [facility] RBC 3.56(L) 3.77 - 5.28 x10E6/uL [facility] Hemoglobin 11.8 11.1 - 15.9 g/dL [facility] Hematocrit 35.3 34.0 - 46.6 % [facility] MCV 99(H) 79 - 97 fL [facility] MCH 33.1(H) 26.6 - 33.0 pg [facility] MCHC 33.4 31.5 - 35.7 g/dL [facility] RDW 13.6 11.7 - 15.4 % [facility] Platelets 236 150 - 450 x10E3/uL [facility] Neutrophil Rel % 73 Not Estab. % [facility] Lymphocyte Rel % 19 Not Estab. % [facility] Monocyte Rel % 7 Not Estab. % [facility] Eosinophil Rel % 1 Not Estab. % [facility] Basophil Rel % 0 Not Estab. % [facility] Neutrophils Absolute 4.5 1.4 - 7.0 x10E3/uL [facility] Lymphocytes Absolute 1.2 0.7 - 3.1 x10E3/uL [facility] Monocytes Absolute 0.4 0.1 - 0.9 x10E3/uL [facility] Eosinophils Absolute 0.1 0.0 - 0.4 x10E3/uL [facility] Basophils Absolute 0.0 0.0 - 0.2 x10E3/uL [facility] Immature Granulocyte Rel % 0 Not Estab. % [facility] Immature Grans Absolute 0.0 0.0 - 0.1 x10E3/uL [facility] Blood 08/25/2022 2:44 PM EST 08/25/2022 Narrative [facility]) - 08/27/2022 6:09 AM EST Performed at: - [address] [id number] Shoe Salesperson: Panda Reyna PhD, Phone: [phone] Patient Fasting: N us Marissa Juaquin Hill MD LAB BLOOD ORDERABLES Final Result [facility] [address] [place] [address], [place] [phone] [facility] [address] [place] [address], [place] [phone] * Chlamydia trachomatis, Neisseria gonorrhoeae, PCR w/ confirmation - Urine, Urine, Clean Catch (08/25/2022 2:44 PM EST) Chlamydia trachomatis, RANJAN Negative Negative [facility] Neisseria gonorrhoeae, RANJAN Negative Negative [facility] Urine Urine specimen obtained by clean catch procedure / Unknown 08/25/2022 2:44 PM EST 08/25/2022 Comment: CD- [id number] N[facility]ative [facility] - 08/27/2022 6:09 AM EST Performed at: [address] [place] [id number] Shoe Salesperson: Maryellen Ceballos MD, Phone: [phone] Patient Fasting: N Marissa Hill MD MICROBIOLOGY - GENERA L ORDERABLES Final Result Performing Organization Address City/[facility] Co de Phone Number [facility] [address] [place] [address], [place] [phone] [facility] [address] [place] [address], [place] [phone] from Last 3 Months or Most Recently Relevant to Health Maintenance Insurance 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
[2025-03-11 22:51] VITALS: BP 132/79; PULSE 98; RESP 14; TEMP 36.7; O2SAT 98; BMI 55.7
[2025-03-11 22:58] VITALS: BP 132/79; PULSE 98; RESP 14; TEMP 36.7; O2SAT 98
--- NOTE | 2025-03-11 22:58 | HMH.EDGENADL ---
Discharge Plan Disposition Patient Disposition: Home, Self-Care Prescriptions Prescriptions: New methocarbamol 500 mg tablet 1,000 mg PO Q6H PRN (Reason: pain) Qty: 60 0RF prednisone 50 mg tablet 50 mg PO DAILY 5 Days Qty: 5 0RF No Action buspirone 10 mg tablet 10 mg PO TID Qty: 90 2RF trazodone 100 mg tablet 100 mg PO DAILY Qty: 30 2RF ibuprofen 800 mg tablet 800 mg PO TID Qty: 30 0RF cyclobenzaprine 10 mg tablet 10 mg PO TID PRN (Reason: muscle spasm) Qty: 30 0RF metformin 500 mg tablet 500 mg PO DAILY Qty: 30 2RF sertraline 100 mg tablet 100 mg PO DAILY Qty: 30 2RF gabapentin 300 mg capsule 300 mg PO HS Qty: 30 2RF levothyroxine 50 mcg tablet See Rx Instructions .ROUTE .COMPLEX Qty: 30 1RF Dose Instruction: TAKE 1 TABLET BY MOUTH ONCE DAILY FOR HYPOTHYROID Rx Instructions: TAKE 1 TABLET BY MOUTH ONCE DAILY FOR HYPOTHYROID Referrals Follow up/Referrals: Herlinda Piña APRN [Primary Care Provider, Family Practice] - See instructions Activity Restrictions/Add. Instructions Additional Instructions/Restrictions: Please follow-up with your primary care provider and with Dr. Irizarry. Please take Tylenol, ibuprofen, steroids, muscle relaxers as needed for pain. Please return to the emergency department if you develop any new or worsening symptoms or become concerned for your health. Clinical Impressions Clinical Impression: Sciatic leg pain Instructions Patient Instructions: DI for Low Back Pain Print Language Print Language: Georgian Discharge ED Provider: Cornelio Paz Adult HPI General Chief complaint: Back Pain/Injury Stated complaint: lower back pain, Rt hip pain Time Seen by Provider: 03/11/25 22:45 Mode of Arrival: Ambulatory Source of Information: Patient Description of Symptoms (Recalled from ER Triage Doc. by RN): baseline back pain, had broken knee last apr, sees dr irizarry for torn acl and knee injury. pt stated she has history of sciatica but states is not usually this bad and going to urgent care and getting muscle relaxers and resting for a few days is usually helpful but has not been this time, feels it is worse. Pain and shock like symtpms down right leg when trying to put weight on it. History of Present Illness HPI narrative: 24-year-old female with history of morbid obesity, chronic intermittent sciatica, severe knee injury last year presents for worsening back pain. She reports that she has to walk with a limp due to her knee injury and she is just now coming back to walking over the last few weeks. Over the last few days she has developed some right sided shooting pain with movement that she characterizes as consistent with her prior sciatica. However, this episode has been worse than normal. She reports no numbness, no weakness, no bowel or bladder incontinence. She has had no history of cancer, no history of malignancy, no IV drug use. She reports the pain shoots down the back of her right leg and also shoots up her back. She reports that she went to the urgent care yesterday and got some cyclobenzaprine but it has really been working. She reports that she normally has Robaxin when this happens. Related Data Previous Rx's ?Medication ?Instructions ?Recorded metformin 500 mg tablet 500 mg PO DAILY #30 tabs 03/05/24 buspirone 10 mg tablet 10 mg PO TID #90 tabs 05/15/24 trazodone 100 mg tablet 100 mg PO DAILY #30 tabs 05/15/24 sertraline 100 mg tablet 100 mg PO DAILY #30 tabs 06/13/24 gabapentin 300 mg capsule 300 mg PO HS #30 caps 06/20/24 levothyroxine 50 mcg tablet See Rx Instructions .Route 07/22/24 .COMPLEX #30 tabs cyclobenzaprine 10 mg tablet 10 mg PO TID PRN muscle spasm #30 03/10/25 tabs ibuprofen 800 mg tablet 800 mg PO TID pain #30 tabs 03/10/25 methocarbamol 500 mg tablet 1,000 mg (2 x 500 mg) PO Q6H PRN 03/11/25 pain #60 tabs prednisone 50 mg tablet 50 mg PO DAILY 5 days #5 tabs 03/11/25 Allergies Allergy/AdvReac Type Severity Reaction Status Date / Time human papillomavirus Allergy Mild Hives Verified 03/10/25 12:23 vaccine, quadr (From Gardasil (PF)) Penicillins (PENICILLINS) Allergy Unknown I-HIVES Verified 03/10/25 12:23 [facility] Disclaimer: The information contained in this section may have been updated after the patient was seen, as this information can be updated by other users. 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 History of COVID-19 Anxiety Sciatica Second trimester Fecal impaction Cervical paraspinal muscle spasm Constipation Callus of foot Plantar fasciitis, right Foot pain Exposure to COVID-19 virus Sinusitis Otitis media Viral syndrome Right hand pain Fall Right wrist sprain URI (upper respiratory infection) Sciatica Low back pain Lumbar radiculopathy Degenerative disc disease, lumbar Low back strain Ankle sprain Hypothyroidism (~04/16/18) Vitamin D deficiency (~04/16/18) Mononucleosis (~04/16/18) Weakness Local reaction to immunization Strep throat Bilateral otitis media Surgical History [place] teeth removed Previous section Family History Family/Other FHx: mental illness Diabetes Hypertension Thyroid disorder Social History Smoking Status: Current every day smoker tobacco type: smokeless tobacco alcohol intake: never substance use type: denies use current occupational status: unemployed Travel in the last 8 weeks?: None household members: family housing: house Have you lived/traveled outside US in past 30 days?: No Contact w/someone who lives/traveled outside US past 30 days?: No Exposure to someone with infectious disease in past 14 days?: No Do you have a fever (greater than 100.4 F or 38 C)?: No Have you tested positive for COVID-19?: No Exposed to someone with COVID-19 in past 14 days?: No Do you have a sore throat?: No Do you have a cough?: No Do you have any weakness?: No Do you have any diarrhea?: No Are you experiencing any unusual bleeding?: No Do you have any muscle aches/pain?: No Do you have any abdominal pain?: No Are you experiencing loss of taste or smell?: No Other 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 Have you received the Flu Vaccine for this season: No Have you received the Pneumonia Vaccine: No ROS Obtained: Yes All systems reviewed & no additional complaints except as documented Physical Exam General General appearance: alert and in no apparent distress Head Head exam: atraumatic and normocephalic Eye Eye exam: Present normal appearance, PERRL and EOMI ENT ENT exam: Present normal oropharynx and normal external ear exam Neck Neck exam: Present normal inspection and full ROM Chest Chest inspection: Present normal inspection and symmetric chest wall rise; Absent tenderness Respiratory Respiratory exam: Present normal lung sounds bilaterally; Absent respiratory distress Cardiovascular Cardiovascular exam: Present regular rate and normal rhythm Abdominal Exam Abdominal exam: Present soft; Absent distention, tenderness or guarding Extremities Exam Extremities exam: Present normal inspection; Absent edema or joint swelling Back Exam Back exam: Present normal inspection; Absent tenderness Neurological Exam Neurological exam: Present alert and oriented X3; Absent motor sensory deficit Psychiatric Psychiatric exam: Present normal affect and normal mood Skin Skin exam: Present warm, dry and normal color Lymphatic Lymphatic Findings: no adenopathy Medical Decision Making Medical Records Medical records reviewed: Yes I reviewed the patient's medical records. Screening: Per USPSTF and CDC recommendations, given the prevalence of disease in our region, it is our hospital?s policy to screen for HIV and viral Hepatitis for all patients aged 18 and over and those with ongoing risk factors. Tian Inquiry Pt receiving controlled substance: No Tian was queried for this patient: No Vital Signs: 03/11/25 22:51 03/11/25 22:58 Temperature 98.0 F 98.0 F Temperature Source Oral Oral Pulse Rate 98 H Pulse Rate [Left Radial] 98 H Respiratory Rate 14 14 Blood Pressure 132/79 Blood Pressure [Left Arm] 132/79 Blood Pressure Mean [Left Arm] 96 Blood Pressure Position [Left Arm] Sitting 02 Sat by Pulse Oximetry 98 98 Oxygen Delivery Method Room Air Room Air Lab Data Lab results reviewed: Yes I reviewed the patient's lab results. Orders (Tests/Meds): ED MEDICATIONS Discontinued Medications Generic Name Dose Route Start Last Admin Trade Name Freq PRN Reason Stop Dose Admin Acetaminophen 1,000 mg 03/11/25 23:07 Acetaminophen 500mg Tab PO 03/11/25 23:08 ONCE ONE Ketorolac Tromethamine 30 mg 03/11/25 23:07 Ketorolac 30mg/Ml Vial IM 03/11/25 23:08 ONCE ONE Methocarbamol 1,500 mg 03/11/25 23:07 Methocarbamol 500mg Tablet PO 03/11/25 23:08 ONCE ONE Prednisone 40 mg 03/11/25 23:07 Prednisone 20mg Tab PO 03/11/25 23:08 ONCE ONE Medical Decision Narrative: 24-year-old female with history of morbid obesity, chronic knee injury, presents for acute on chronic right-sided sciatic type pain.. History was obtained via interactive discussion with patient. On arrival, patient is [afebrile, hemodynamically stable, satting appropriately, alert, oriented x4, GCS 15], moving all extremities spontaneously. Full physical exam performed and significant for no objective weakness or numbness on exam Differential includes but is not limited to sciatica, disc herniation, spinal cord pathology. History is consistent with sciatica, patient has no red flag history or symptoms to suggest spinal cord pathology. I considered obtaining imaging but do not think it would be clinically useful at this time. I had an interactive discussion with patient and her presentation. Given her symptoms are worse than normal, I think a trial of steroids could potentially be helpful, though I do not normally prescribe that for sciatica. I also prescribed her Robaxin which seems to work better for her in the past. Recommended she call and follow-up with Dr. Irizarry. Return precautions given. Procedures Risk/Benefits of Procedure(s) Were Explained: Yes Critical Care Critical Care Time Critical Care Time: No
[2025-03-11] MEDS: KETOROLAC 30MG/ML VIAL 30 MG IM (23:15)
[2025-03-11] MEDS: ACETAMINOPHEN 500MG TAB 1000 MG PO (23:16)
[2025-03-11] MEDS: METHOCARBAMOL 500MG TABLET 1500 MG PO (23:16)
[2025-03-11 23:29] VITALS: BP 132/79; PULSE 78; RESP 14; TEMP 36.7; O2SAT 98
== END 2025-03-11 23:31 | disposition home or self-care (01) ==
PROVIDERS: Emergency Provider Emergency Medicine; PCP Family Medicine
DX: M54.42 Lumbago with sciatica, left side (principal); F17.200 Nicotine dependence, unspecified, uncomplicated
CPT/HCPCS: 96374; 99283; J1885

== ENCOUNTER 2025-04-10 15:13 | Outpatient (CLI) | payer MEDICAID, SELFPAY ==
--- NOTE | 2025-04-10 15:15 | MR_ITS ---
FINAL REPORT CLINICAL HISTORY: evaluate and treat PAIN UP BACK AND DOWN RIGHT LEG COMPARISON: None FINDINGS: Multiplanar MR imaging of the lumbar spine was performed without contrast. On the sagittal T2-weighted images, there is abnormal decreased signal at the L5-S1 disc level. The vertebrae are of normal height. The vertebral alignment is normal. T12-L1: There is no significant canal stenosis or neuroforaminal narrowing. L1-2: There is no significant canal stenosis or neural foraminal narrowing. L2-3: There is no significant canal stenosis or neural foraminal narrowing. L3-4: There is no significant canal stenosis or neural foraminal narrowing. L4-5: There is no significant canal stenosis or neural foraminal narrowing. L5-S1: Mild disc bulge. Neuroforamen are adequately patent. IMPRESSION: Mild disc bulge at L5-S1. Reviewed, Interpreted and Dictated by Eliceo Hussein MD Transcribed by Joy Manley Authenticated and [facility]
--- OUTSIDE RECORDS SUMMARY | 2025-04-10 15:15 | XMS_ITS | Clinical Summary ---
Author Organization [facility] Address [address] [place] [address] Care Team Providers Care Sound Designer Name Role Phone Nikolas Nguyễn MD Primary Care Provider [phone] Allergies Active Allergy Reactions Criticality Noted Date [...] things needed for daily living? 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 RPR Non Reactive Non Reactive [facility] [...] 08/27/2022 6:09 AM EST Performed at: - [address] [id number] Glue Spreader: Panda Reyna PhD, Phone: [phone] Patient Fasting: N us Marissa Juaquin Hill MD LAB BLOOD ORDERABLES Final Result [facility] [address] [place] [address], [place] [phone] [facility] [address] [place] [address], [place] [phone] * Chlamydia trachomatis, Neisseria gonorrhoeae, PCR w/ confirmation - Urine, Urine, Clean Catch (08/25/2022 2:44 PM EST) Chlamydia trachomatis, RANJAN Negative Negative [facility] Neisseria gonorrhoeae, RANJAN Negative Negative [facility] Urine Urine specimen obtained by clean catch procedure / Unknown 08/25/2022 2:44 PM EST 08/25/2022 Comment: CD- [id number] Narrative [facility] - 08/27/2022 6:09 AM EST Performed at: [address] [place] [id number] Glue Spreader: Maryellen Ceballos MD, Phone: [phone] Patient Fasting: N Marissa Hill MD MICROBIOLOGY - GENERA L ORDERABLES Final Result Performing Organization Address City/[facility] Co de Phone Number [facility] [address] [place] [address], [place] [phone] [facility] [address] [place] [address], [place] [phone] from Last 3 Months or Most Recently Relevant to Health Maintenance Insurance [facility] [place] Advance Directives * CPR (Attempt to Resuscitate) (Latest Code Status on File) Date Activated Date Inactivated Comments 03/14/2023 3:33 AM 03/17/2023 2:47 PM Question Answer Comments Code Status (Patient has no pulse and is not breathing): CPR (Attempt to Resuscitate) Medical Interventions (Patie nt has pulse or is breathing): Full Release to patient: Routine Release Care Teams Sound Designer Relationship Specialty Start Date End Date Nikolas Nguyễn MD [address] [place] [address] PCP - General Emergency Medicine 03/21/23
== END 2025-04-10 23:59 | disposition home or self-care (01) ==
LOC: RAD 15:14
PROVIDERS: PCP Family Medicine; Visit Provider Orthopaedic Surgery
DX: M51.17 Intervertebral disc disorders with radiculopathy, lumbosacral region (principal)
CPT/HCPCS: 72148